=== PATIENT | male | born 1960 | race Caucasian/White ===

== ENCOUNTER → 2016-11-16 | Outpatient (CLI) | payer OTHER ==
[~2016-11-16] MED LIST: ASCO10003 PO; GABA-113 PO; LISI-461 PO; PRLSR20 PO
== END | disposition home or self-care (01) ==
LOC: C.PATHSPEC 09:59
PROVIDERS: ATTEND Family Medicine
DX: D22.9 Melanocytic nevi, unspecified (principal); L82.1 Other seborrheic keratosis

== ENCOUNTER → 2017-02-04 | Outpatient (CLI) | payer OTHER | END | disposition home or self-care (01) | LOC: C.PATHSPEC 10:41 | PROVIDERS: ATTEND Family Medicine | DX: T14.8 Other injury of unspecified body region (principal); X58.XXXA Exposure to other specified factors, initial encounter; L90.5 Scar conditions and fibrosis of skin ==

== ENCOUNTER → 2017-04-19 | Outpatient (CLI) | payer OTHER ==
[2017-04-19 13:29] LABS: BLOOD UREA NITROGEN 11 mg/dl (7-18); BUN/CREATININE RATIO 11.4 (10-20); CALCIUM 9.1 mg/dl (8.5-10.1); CARBON DIOXIDE 26 mmol/L (21-32); CHLORIDE 106 mmol/L (98-107); CREATININE 0.94 mg/dl (0.60-1.40); GLUCOSE 95 mg/dl (70-99); POTASSIUM 3.8 mmol/L (3.5-5.1); SODIUM 139 mmol/L (136-145)
== END | disposition home or self-care (01) ==
LOC: C.LABMFLN 10:51
PROVIDERS: ATTEND Physician Assistant
DX: I10 Essential (primary) hypertension (principal); R35.0 Frequency of micturition; R30.0 Dysuria

== ENCOUNTER 2017-04-23 15:02 | Emergency (ER) | payer OTHER ==
[~2017-04-23] VITALS: Ht 175.3 cm; Wt 104.6 kg
[2017-04-23 15:06] VITALS: TEMP 36.7; Ht 175.3 cm; Wt 104.6 kg
--- NOTE | 2017-04-23 15:36 | EMERGENCY ROOM VISIT NOTE ---
History First contact with patient: 15:11 Chief Complaint: LACERATION/CUT (SUT/DERMABOND) Stated Complaint: WOUND ON RIGHT HAND Nursing Triage Summary: Pt states a drill slipped and neto's head lauro screw went into right hand between thumb and 1st finger about 1 inch. History of Present Illness The patient is a 56 year old male who presents to the Emergency Room with complaints of a puncture wound of the right hand. The patient states that he accidentally drilled into his hand with a drill bit. He believes that the bit went into the hand approximately 1/4 inch. He cleaned the wound with peroxide and rubbing alcohol and applied bacitracin. He rates his discomfort a 2/10. He states his tetanus vaccination is up-to-date. He has normal range of motion of the hand and denies any numbness or weakness. He denies any other injuries. Review of Systems A complete 10 point review of systems was reviewed with the patient with pertinent positives and negatives as per history of present illness. All else were negative. Social History Smoking Status: Former Smoker Current/Historical Medications Scheduled Ascorbic Acid (Vitamin C), 1,000 MG PO DAILY Gabapentin (Neurontin), 300 MG PO BID Lisinopril (Zestril), 10 MG PO BID Omeprazole (Prilosec), 20 MG PO DAILY Physical Exam Vital Signs Date Time Temp Pulse Resp B/P (MAP) Pulse Ox O2 Delivery O2 Flow Rate FiO2 04/23/17 15:52 75 18 134/76 99 04/23/17 15:06 36.7 82 18 168/108 97 Room Air Physical Exam VITALS: Vitals are noted on the nurse's note and reviewed by myself. Vital signs stable. GENERAL: This is a 56-year-old male, in no acute distress, nondiaphoretic, well- developed well-nourished. SKIN: There is a small, subcentimeter puncture wound to the webspace of the right hand between the first and second digits. There is no active bleeding. There are no foreign bodies. MUSCULOSKELETAL: Full range of motion of the right hand and all fingers. NEURO: Patient was alert and oriented to person place and time. Normal sensation to light and sharp touch. Medical Decision & Procedures Medical Decision The patient was evaluated as above. He sustained a puncture wound to the right hand. The wound was cleansed with sterile saline and a dressing was applied. Wound care instructions were discussed with the patient and he should return for any signs of infection. There is no numbness or weakness on exam. I do not feel that imaging is necessary. The patient verbalizes understanding of my assessment and treatment plan and was discharged home in good condition. Medication Reconcilliation Current Medication List: was personally reviewed by me Blood Pressure Screening Patient's blood pressure: Elevated blood pressure Blood pressure disposition: Elevated BP felt to be situational Impression Primary Impression: Puncture wound of right hand Departure Information Dispostion Home / Self-Care Condition GOOD Referrals Nakul Blackman M.D. (PCP) Patient Instructions My [facility] Additional Instructions Proper wound care is essential for adequate wound healing and infection prevention. You can shower and clean the wound with soap and water. Do not scour over the wound, pat dry with a towel. Do not submerse the wound (i.e. bathe or dish wash) until the wound has fully healed. You can use an antibiotic ointment with a dressing over the wound for the next 3-4 days. After this time you may leave the wound dry and open to the air. For pain control, you can use the following [id number] medicines (if >12 yo): - Regular strength (325mg/tab) Tylenol (acetaminophen) 2 tabs every 4-6 hours as needed. Do not exceed 12 tablets in a 24 hour period. Avoid taking more than 4 grams (4000 mg) of Tylenol per day. This includes any other sources of acetaminophen you may take on a regular basis. - Regular strength (200 mg/tab) Advil (ibuprofen) 1-2 tabs every 4-6 hours as needed. Do not exceed a dose of 3200 mg per day. Return for any signs of infection, including increasing redness, increasing swelling, puslike drainage or fevers. Problem Qualifiers Primary Impression: Puncture wound of right hand Encounter type: initial encounter Foreign body presence: without foreign body Qualified Codes: S61.431A - Puncture wound without foreign body of right hand, initial encounter
[2017-04-23] MEDS ORDERED: GABA-113 PO (15:43)
[2017-04-23] MEDS ORDERED: PRLSR20 PO (15:43)
[2017-04-23] MEDS ORDERED: ASCO10003 PO (15:43)
[2017-04-23] MEDS ORDERED: LISI-461 PO (15:43)
[2017-04-23 15:52] VITALS: BP 134/76; PULSE 75; O2SAT 99
== END 2017-04-23 15:54 | disposition home or self-care (01) ==
LOC: C.EDB 15:03 → C.EDD 15:54
DX: S61.431A Puncture wound without foreign body of right hand, initial encounter (principal); W29.8XXA Contact with other powered hand tools and household machinery, initial encounter; Z87.891 Personal history of nicotine dependence; Z79.899 Other long term (current) drug therapy

== ENCOUNTER → 2017-05-07 | Outpatient (CLI) | payer OTHER | END | disposition home or self-care (01) | LOC: C.LABMFLN 16:12 | PROVIDERS: ATTEND Family Medicine | DX: R30.0 Dysuria (principal) ==

== ENCOUNTER → 2017-08-02 | Outpatient (CLI) | payer OTHER ==
[2017-08-02 18:22] LABS: BLOOD UREA NITROGEN 4 mg/dl (7-18); BUN/CREATININE RATIO 3.9 (10-20); CALCIUM 9.1 mg/dl (8.5-10.1); CARBON DIOXIDE 27 mmol/L (21-32); CHLORIDE 105 mmol/L (98-107); CREATININE 0.96 mg/dl (0.60-1.40); GLUCOSE 91 mg/dl (70-99); POTASSIUM 4.2 mmol/L (3.5-5.1); SODIUM 137 mmol/L (136-145)
[2017-08-02 18:32] LABS: THYROID STIMULATING HORMONE 0.714 uIu/ml (0.300-4.500)
== END | disposition home or self-care (01) ==
LOC: C.LABMFLN 11:58
PROVIDERS: ATTEND Family Medicine
DX: R63.5 Abnormal weight gain (principal); R06.00 Dyspnea, unspecified

== ENCOUNTER → 2017-12-20 | Outpatient (CLI) | payer OTHER ==
[2017-12-20 18:37] LABS: BLOOD UREA NITROGEN 8 mg/dl (7-18); CALCIUM 8.7 mg/dl (8.5-10.1); CARBON DIOXIDE 25 mmol/L (21-32); CREATININE 0.99 mg/dl (0.60-1.40); GLUCOSE 77 mg/dl (70-99); POTASSIUM 3.8 mmol/L (3.5-5.1); SODIUM 138 mmol/L (136-145)
== END | disposition home or self-care (01) ==
LOC: C.LABMFLN 14:38
PROVIDERS: ATTEND Family Medicine
DX: N41.1 Chronic prostatitis (principal)

== ENCOUNTER → 2018-03-26 | Outpatient (CLI) | payer OTHER ==
--- NOTE | 2018-03-26 13:22 | DIAGNOSTIC IMAGING REPORT ---
CT SOFT TISSUE NECK WITHOUT CT DOSE: 516.09 mGycm CLINICAL HISTORY: K11.9 parotid tail mass. TECHNIQUE: Imaging was performed without intravenous contrast. A dose lowering technique was utilized adhering to the principles of ALARA. COMPARISON STUDY: None. FINDINGS: The visualized portions of the intracranial contents appear unremarkable. No orbital masses are visualized. The lung apices are unremarkable in appearance. There is 11 mm exophytic nodule containing a central calcification arising from or contiguous with the lower pole of the left lobe of the thyroid No salivary gland masses are visualized given the limitations of a noncontrast study. There is no pathologic adenopathy on this noncontrast examination. There are multilevel degenerative changes within the spine. IMPRESSION: 1. 11 mm exophytic nodule containing a central calcification arising from or contiguous with the lower pole the left lobe of the thyroid 2. No salivary gland masses identified on this noncontrast study 3. No evidence of pathologic adenopathy on this noncontrast study Electronically signed by: Maurice Cameron M.D. 03/26/2018 1:21 PM Dictated Date/Time: 03/26/2018 1:16 PM
--- NOTE | 2018-03-26 13:24 | DIAGNOSTIC IMAGING REPORT ---
CT OF THE SINUSES WITHOUT CONTRAST FUSION PROTOCOL CLINICAL HISTORY: Recurrent acute and chronic sinusitis with persistent symptoms despite treatment. COMPARISON STUDY: No previous studies for comparison. TECHNIQUE: Axial images of the sinuses were obtained without IV contrast according to Fusion protocol. Coronal reformats were viewed. FINDINGS: Please note that the CT of the neck will be reported separately. Visualized portions of the intracranial contents are unremarkable on this unenhanced exam. The mastoid air cells are clear. Orbits are unremarkable. There is no mass or bony destruction within the nasal cavity or the sinuses. Mild leftward deviation of the nasal septum with spur formation is noted. The major drainage pathways are patent, including the ostiomeatal complexes. The maxillary sinuses and sphenoid sinuses are clear. There is minimal mucosal thickening of the ethmoid sinuses. Frontal sinuses are clear. IMPRESSION: 1. Essentially clear paranasal sinuses. Minimal ethmoid sinus mucosal thickening. Patent major drainage pathways without evidence for acute sinusitis. 2. Mild leftward deviation of the nasal septum with spur formation. Electronically signed by: Tonio Campos M.D. 03/26/2018 1:22 PM Dictated Date/Time: 03/26/2018 1:14 PM
== END | disposition home or self-care (01) ==
LOC: C.CTS 12:52
DX: J32.9 Chronic sinusitis, unspecified (principal); K11.9 Disease of salivary gland, unspecified

== ENCOUNTER → 2018-04-24 | Outpatient (CLI) | payer OTHER ==
--- NOTE | 2018-04-24 10:52 | DIAGNOSTIC IMAGING REPORT ---
THYROID ULTRASOUND CLINICAL HISTORY: Solitary thyroid nodule. COMPARISON STUDY: Neck CT March 26, 2018. PROCEDURE AND FINDINGS: The patient presented today for biopsy of a 1.1 cm left lobe thyroid nodule shown by CT. The procedure, risks and benefits were discussed with the patient including the risk of bleeding, infection and injury to adjacent structures. The patient agreed to the procedure and informed written consent was obtained. The procedure was performed by Dr. Campos following a timeout. Sonography of the thyroid again demonstrated a 1.3 cm nodule within the lower pole of the left lobe which contained a calcification in corresponded to the nodule shown on CT of March 26, 2018. Skin was prepped and draped in sterile fashion and local anesthesia was achieved with 1% lidocaine. Under direct sonographic guidance, multiple attempts were made to biopsy the left lower pole nodule. Given the small size and depth of the nodule, biopsy attempt was unsuccessful. No sample was obtained. This was discussed with the patient and it was decided to not proceed with further sampling at this time. Sonographic follow up is recommended. IMPRESSION: Unsuccessful fine needle aspiration of left lower pole thyroid nodule given small size and inferior location of the nodule. No tissue could be obtained. This was discussed with the patient and it was decided to not proceed with further sampling at this time. A 6 month follow-up thyroid ultrasound could be obtained to ensure stability. Electronically signed by: Tonio Campos M.D. 04/24/2018 10:51 AM Dictated Date/Time: 04/24/2018 10:47 AM
== END | disposition home or self-care (01) ==
LOC: C.ULTR 09:29
DX: E04.1 Nontoxic single thyroid nodule (principal)

== ENCOUNTER 2024-07-25 19:54 | Observation (INO) ==
--- NOTE | 2024-07-25 20:07 | Emergency Department Note ---
Impression & Plan Hypertension, Facial flushing, Tachycardia ED Provider Note NAME: DELONTE LUGO AGE: 64 SEX: M : 1960 ARRIVES VIA: Walk-In INFORMANT: Patient, Friend at bedside ED PROVIDER(S): Romulo Roa MD CHIEF COMPLAINT: Facial flushing, elevated heart rate, hypertension MEDICAL DECISION MAKING: Patient presents due to concern for facial flushing elevated heart rate and hypertension that has been intermittent. Patient's blood work shows a normal white count H&H and platelet count. The patient's kidney function was unremarkable. Urinalysis negative for blood or infection. Chest x-ray does not show any obvious pneumonia or pneumothorax. I did inform the patient of the findings. Patient's bilirubin is slightly elevated 2.5. He states that he does have a history of Gilbert's disease. I did speak the on-call hospitalist service Dr. Juárez and the patient was admitted to medicine service Discussion w/ other healthcare providers: Dr. Juárez inpatient medicine service Prior /Outside records reviewed: I reviewed part of a primary care visit note from March 20, [address] Art and history of hypertension anxiety started on doxazosin discontinued amlodipine. Patient did have a recent thyroid ultrasound completed on July 15 which showed single left lobe nodule with TR 4 could consider fine-needle aspirate and follow-up according to guidelines. The ultrasound was ordered by Dr. Dueñas with ear nose and throat. Differential diagnosis: Benign hypertension, renal artery stenosis, hypertensive emergency, hypertensive emergency/urgency, salt intake, pheochromocytoma, electrolyte abnormality, renal disease as well as other etiologies were entertained. Diagnostics, as interpreted by me: ECG: None Cardiac monitoring: An order was placed for continuous cardiac monitoring. The monitor shows a rate of 85 with sinus rhythm. Patient was placed on pulse oximetry Medical decision rules: None Imaging studies: I informally interpreted the patient's chest x-ray does not show obvious pneumonia or pneumothorax with formal report to follow. HPI: Patient presents due to concern for facial flushing associated hypertension and tachycardia. The patient reports that this seems to happen in waves. Is been ongoing over the last month and sometimes the initial burning sensation and flushing will last about 5 minutes but notes that his blood pressure is elevated. States that this is occurred about 10 times in the last month. Patient denies any falls or trauma. He states he is not stressed no alcohol tobacco or drugs. Only medication he currently takes is omeprazole for GERD. He did have a recent thyroid ultrasound that he was told by his ENT Dr. Spenser guevara. Patient denies any abdominal pain no chest pain or shortness of breath no nausea or vomiting. The patient states that it does feel similar to when he would have a gluten intolerance as he has a known history of celiac's but he notes that he has not been eating or drinking any of these things. He does admit that he has had a little bit of dysuria and has a history of BPH and was taking a cranberry supplement that was fermented and if so sometimes this can can have an effect or he does not tolerate it very well. He was unsure as without this could have been a contributory factor but he was having the symptoms prior to taking this 3 days ago. Patient denies any itchiness. No changes in creams detergents or otherwise. PAST MEDICAL HISTORY: See Below PAST SURGICAL HISTORY: See Below SOCIAL HISTORY: See Below HOME MEDICATIONS: See Below ALLERGIES: See Below VITALS: See Below PHYSICAL EXAMINATION: GENERAL: NAD, non-toxic. Wearing glasses only right lens present. EYE EXAM: Normal conjunctiva. PERRL, no anisocoria and EOM's grossly intact w/o pain. OROPHARYNX: Moist mucus membranes, grossly normal dentition. NECK: Trachea midline, no stridor. Supple, no nuchal rigidity, no adenopathy, non-tender. No signs of meningismus. FROM of the neck with good chin to chest and neck extension. LUNGS: Clear to auscultation. Normal chest wall mechanics. HEART: NSR, no MRG. ABDOMEN: Abdomen soft, non-tender, no masses, no rebound or guarding. BACK: No CVA TTP. SKIN: No rashes and no bruising. UPPER EXTREMITIES: Upper extremities are grossly normal. LOWER EXTREMITIES: Grossly normal, no edema. NEURO EXAM: A&O x3, cranial nerves II-XII grossly intact, normal speech, moves all 4 extremities. Past Med/Surg History Problem List (Updated 07/26/24 @ 00:02 by Romulo Roa MD) Tachycardia (Acute) Facial flushing (Acute) Hypertension (Acute) Chronic rhinitis LPRD (laryngopharyngeal reflux disease) Anxiety Hypertension Chronic GERD BPH loc w urin obs/LUTS Vitamin D deficiency Goiter Actinic keratitis Malabsorption Screening, lipid Actinic keratitis Screening, lipid Actinic keratosis Hyperkalemia Throat discomfort Dysuria Benign essential hypertension Sebaceous hyperplasia Depression with anxiety (Chronic) Erectile dysfunction (Chronic) GERD without esophagitis (Chronic) Globus sensation (Acute) Hypercholesterolemia (Chronic) NUD (nonulcer dyspepsia) (Chronic) Peripheral neuropathy (Chronic) Sensorineural hearing loss (SNHL) of both ears (Chronic) Solitary thyroid nodule (Acute) White coat syndrome without hypertension (Chronic) Actinic keratosis of multiple sites of head and neck (Acute) Cryo-therapy done on the nose w/o difficulty. SPF over 50 applied every 2 hrs avoids mid day sun 11-4 during the day. Medical History Celiac disease Pertrochanteric fracture of femur Hypertension Surgical History History of colonoscopy History of tonsillectomy and adenoidectomy History of esophagogastroduodenoscopy (EGD) History of cholecystectomy History of cataract surgery Family History Mother Anxiety Diabetes Gallbladder disease Hypertension Cancer Skin Parkinson disease Asthma Grandfather Heart disease Hypertension Stroke Father Lung disease Social History Smoking Status: Never smoker Tobacco Type: Cigarettes Hx Alcohol Use: No Hx Substance Use: No Preferred Language: Indonesian Visual Impairment: No Limitations Hearing Ability: Normal Beliefs That Will Affect Care: None marital status: Current Living Situation: Significant Other current occupational status: retired and disabled Feels Safe at Home: Yes Childhood Exposure to Second-Hand Smoke: Yes caffeine: No Dental Care, Regularly: Yes Physical Activity Frequency: Daily Seatbelt Use: always Sunscreen Use: Yes Allergies Allergies Allergy/AdvReac Type Severity Reaction Status Date / Time doxycycline Allergy Intermediate AFTER 5-7 Verified 05/13/24 08:28 DAYS DEVELOPED A SORE THROAT Sulfa (Sulfonamide Allergy Intermediate Rash Verified 05/13/24 08:28 Antibiotics) gluten Allergy Gastrointestinal Verified 07/25/24 22:15 Upset soy Allergy Hypertensio Verified 07/25/24 22:15 n ARIANA Inhibitors AdvReac Intermediate COUGH/SORE Verified 05/13/24 08:28 THROAT amitriptyline AdvReac Intermediate FREQUENT Verified 05/13/24 08:28 URINATION amoxicillin AdvReac Intermediate Hypertensio Verified 05/13/24 08:28 n bismuth subsalicylate AdvReac Intermediate RINGING IN Verified 05/13/24 08:28 [From Pepto-Bismol] EARS ciprofloxacin AdvReac Intermediate NEUROPATHY Verified 05/13/24 08:28 IN HANDS clindamycin AdvReac Intermediate Diarrhea Verified 05/13/24 08:28 metronidazole AdvReac Intermediate NEUROPATHY Verified 05/13/24 08:28 IN HANDS prednisone AdvReac Intermediate NAUSEA/FREQUENT Verified 05/13/24 08:28 URINATION amlodipine AdvReac Tachycardia Uncoded 07/25/24 22:13 Home Meds Home Medications Medication Instructions Recorded Confirmed esomeprazole magnesium 20 mg 20 mg PO DAILY 05/13/24 07/25/24 granules delayed release for susp gabapentin 300 mg capsule 300 mg PO TID PRN Pain 07/25/24 07/25/24 Results & Data (ED) Vital Signs Vital Signs - 24 hr 07/25/24 19:59 07/25/24 20:14 07/25/24 20:23 Temperature 36.8 C Temperature Source Temporal Artery Scan Pulse Rate 112 H 109 H 104 H Pulse Rate from SpO2 Sensor Pulse Rhythm Regular Respiratory Rate 19 18 Blood Pressure 166/99 H Blood Pressure Mean 121 Pulse Oximetry 97 96 Oxygen Delivery Method Room Air Room Air Sepsis Recent Fever Within 48 Hours No Sepsis New/Unexplained Change in Mental Status No Sepsis Action Taken by Nursing No Action Required 07/25/24 20:37 07/25/24 20:46 07/25/24 22:06 Temperature Temperature Source Pulse Rate 94 H 92 H 87 Pulse Rate from SpO2 Sensor 85 Pulse Rhythm Respiratory Rate 20 18 19 Blood Pressure 174/92 H 155/86 H Blood Pressure Mean 119 109 Pulse Oximetry 98 99 99 Oxygen Delivery Method Sepsis Recent Fever Within 48 Hours Sepsis New/Unexplained Change in Mental Status Sepsis Action Taken by Nursing 07/25/24 22:18 07/25/24 23:36 Temperature Temperature Source Pulse Rate 91 H 82 Pulse Rate from SpO2 Sensor 94 H Pulse Rhythm Respiratory Rate 18 16 Blood Pressure 151/123 H Blood Pressure Mean 132 Pulse Oximetry 100 99 Oxygen Delivery Method Sepsis Recent Fever Within 48 Hours Sepsis New/Unexplained Change in Mental Status Sepsis Action Taken by Residential Medications Current Medication List: was personally reviewed by me Laboratory Data Attestation: I reviewed the patient's lab results. 07/25/24 20:32 07/25/24 20:32 Lab Results 07/25/24 07/25/24 Range/Units 20:32 23:10 WBC 5.76 (4.8-10.8) K/ul RBC 4.70 (4.70-6.10) M/uL Hgb 15.3 (14.0-18.0) g/dl Hct 42.9 (42.0-52.0) % MCV 91.3 (80.0-100.0) fL MCH 32.6 (25.0-34.0) pg MCHC 35.7 (32.0-36.0) g/dL RDW Std Deviation 40.4 (36.4-46.3) fL RDW Coeff of Franky 12.1 (11.5-14.5) % Plt Count 143 (130-400) K/uL MPV 9.7 (9.4-12.4) fL Immature Gran % (Auto) 0.3 % Neut % (Auto) 72.5 % Lymph % (Auto) 18.9 % [place] % (Auto) 6.9 % Eos % (Auto) 1.2 % Baso % (Auto) 0.2 % Neut # (Auto) 4.17 (1.40-6.50) K/uL Lymph # (Auto) 1.09 L (1.20-3.40) K/uL [place] # (Auto) 0.40 (0.11-0.59) K/uL Eos # (Auto) 0.07 (0.00-0.50) K/uL Baso # (Auto) 0.01 (0.00-0.20) K/uL Immature Gran # (Auto) 0.02 (0.01-0.20) K/uL ESR 7 (0-20) mm/hr Sodium 140 (136-145) mmol/L Potassium 4.2 (3.5-5.1) mmol/L Chloride 109 H (98-107) mmol/L Carbon Dioxide 25 (21-32) mmol/L Anion Gap 6 (3-11) BUN 14 (6-23) mg/dl Creatinine 1.18 (0.6-1.4) mg/dl Est Cr Clr Drug Dosing 63.4 ml/min eGFR 69.77 BUN/Creatinine Ratio 11.9 (10-20) Glucose 107 H (70-99(Fasting)) mg/dl Calcium 8.9 (8.6-10.3) mg/dl Magnesium 2.0 (1.7-2.4) mg/dl Total Bilirubin 2.5 H (0.2-1.0) mg/dl AST 18 (13-39) U/L ALT 19 (7-52) U/L Alkaline Phosphatase 50 (34-104) U/L Troponin I High Sens 16.2 15.1 (0-20) pg/ml Total Protein 6.7 (6.0-8.3) gm/dl Albumin 4.1 (3.4-5.0) gm/dl Globulin 2.6 (2.5-4.0) gm/dl Albumin/Globulin Ratio 1.6 (0.9-2) TSH 0.965 (0.300-4.500) uIu/ml Urine Color Yellow Urine Appearance Clear (Clear) Urine pH 7.0 (4.5-7.5) Ur Specific [place] 1.008 (1.000-1.030) Urine Protein Negative (Negative) Urine Glucose (UA) Negative (Negative) Urine Ketones Negative (Negative) Urine Blood Negative (Negative) Urine Nitrite Negative (Negative) Urine Bilirubin Negative (Negative) Urine Urobilinogen Negative (Negative) Ur Leukocyte Esterase Negative (Negative) Imaging Data Radiologist's Impression: Chest X-Ray 07/25/24 20:23 Exam(s): XR CXR 1 VIEW EXAM: XR Chest, 1 View CLINICAL HISTORY: Reason for exam: Hypertension. TECHNIQUE: Frontal view of the chest. COMPARISON: 06/16/21 FINDINGS: Lungs: Unremarkable. No consolidation. Pleural space: Unremarkable. No pleural effusion or pneumothorax. Heart: Unremarkable. No cardiomegaly or pulmonary vascular congestion. Bones/joints: No acute fracture. No dislocation. IMPRESSION: No evidence of acute cardiopulmonary disease. Electronically signed by: Shanti Vázquez M.D. 07/25/24 22:45 PM Discharge Plan Visit Data Chief Complaint: Illness Stated Complaint: FACIAL FLUSHING, INCREASING HEARTRATE, HIGH BP ED Provider: Romulo Roa Discharge Problem: Hypertension, Facial flushing, Tachycardia Forms [facility] Prescriptions: No Action esomeprazole magnesium [address] for susp in packet 20 mg PO DAILY gabapentin 300 mg capsule 300 mg PO TID PRN (Reason: Pain) Referrals Referrals: Ivone Thomas MD [Primary Care Provider] - Discharge Problem: Hypertension Qualifiers: Hypertension type: unspecified Qualified Code(s): I10 - Essential (primary) hypertension
--- OUTSIDE RECORDS SUMMARY | 2024-07-25 20:17 | External Medical Summary | Summary of Care ---
Author Name Unknown Organization [facility] Address [address] [place] [address] Phone [phone] Care Team Providers Care Supervisor Reclamation Name Role Phone Ivone Thomas MD Primary Care Provider [phone] Reason for Visit * Reason Comments Other IOP check Encounter Details Date Type Department Care Team (Late st Contact Info) Description 07/14/2024 11:30 AM EST Office Visit [address] [address] Kaia Ludwig MD [address] [place] [id number] Pigmentary glaucoma of left eye, mild stage* Allergies Active Allergy Reactions Criticality Noted Date Comments Albuterol 03/29/2022 Amoxicillin Hypertension 06/30/2021 Chocolate Hypertension 11/14/2023 Hot, flushed Ciprofloxacin 12/29/2014 Heart Palp/Panic Attacks/Numbness Pt states that he got a terrible burning sensation in his chest that went up to his face. Pt also stated that he got a terrible panic attack. Clindamycin Hcl Diarrhea 07/30/2010 Doxycycline 03/06/2016 Burning in throat Metronidazole Chills/rigors 01/13/2015 Hand/Arm Numbness Gluten Meal 03/02/2016 Celiac Disease Morphine And Codeine Nausea/vomiting,Oth er (Please comment) Low 11/18/2003 "Feels funny", dizziness Pantoprazole Hypertension 01/15/2023 Prednisone Other (Please comment) Medium 04/06/2021 urinary problems Soy Allergy 04/16/2022 Statins 03/02/2016 Refuses To Take Sulfa Antibiotics 11/18/2003 Rash Timolol 12/05/2023 Fatigue, PALACIOS Wheat 01/24/2015 documented as of this encounter (statuses as of 07/18/2024) Medications gabapentin (NEURONTIN) 100 MG Capsule Take 1 Cap by mouth 3 times a day. 90 Cap 0 01/25/20 15 Active Sildenafil Citrate 20 MG Oral Tablet (Revatio) Take 1 Tablet by mouth. Take 3-5 at a time up to 3 times weekly Active Vitamin D-3 125 MCG (5000 UT) Oral Tablet Take 1 Tablet by mouth in the morning. Active Esomeprazole Magnesium 20 MG Oral Capsule Delayed Release Take 1 Capsule by mouth daily before breakfast. Active Colestipol HCl 1 GM Oral Tablet (Colestid) Take 2 Tablets by mouth in the morning and 2 Tablets before bedtime. Active Tylenol 325 MG Oral Capsule (Acetaminophen) Take by mouth. Active Ondansetron 4 MG Oral Tablet Disintegrating (Zofran) Place 1 Tablet on tongue every 8 hours as needed for Nausea. dissolve on tongue. 2 Tablet 01/01/20 24 Active oxyCODONE-Acetamin ophen 5-325 MG Oral Tablet (Percocet) Take 1 Tablet by mouth every 6 hours as needed for Pain, Moderate or Pain, Severe. 6 Tablet 01/01/20 24 Active Additional Information Patient not taking.Informant: At Discharge, Reported on 01/05/2024 Brimonidine Tartrate 0.2 % Ophthalmic Solution (Alphagan) Instill 1 Drop into the left eye in the morning and 1 Drop before bedtime. 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 documented as of this encounter (statuses as of 07/18/2024) Immunizations Name Administration Dates Next Due Seasonal Influenza Vac., MDV , IM, 0.5 mL (Fluzone) 06/24/2019,06/18/2018,06/21/2017, 016 TDAP (age 10 and older)(Boostrix) 05/12/2014 documented as of this encounter Social History Tobacco Use Types Packs/Day Years Used Date Smoking Tobacco: Former Smokeless Tobacco: Never Alcohol Use Standard Drinks/Week Comments Yes 0 (1 standard drink = 0.6 oz pur e alcohol) occasional Utilities Answer Date Recorded Do you have trouble paying y our heating, water, or electric bill? (Adult - for ages 18 years and over) Not on file 02/18/2024 Is your family able to pay t he heat, water, or electric bill? (Household - for ages 0-17 years) Not on file 02/18/2024 Does your family have access to good internet? (Household - for ages 0-17 years) Not on file 02/18/2024 Social Connections Answer Date Recorded How often do you feel lonely or isolated from those around you? (Adult - for ages 18 years and over) Not on file 02/18/2024 Sex and Gender Information Value Date Recorded Sex Assigned at Not on file Legal Sex Male 7:21 AM EST Gender Identity Not on file Sexual Orientation Not on file documented as of this encounter Functional Status * Are you deaf or do you have serious difficulty hearing? Answer Date of Assessment Author No 01/08/2015 7:37 PM Emmie Maradiaga RN * Are you blind or do you have serious difficulty seeing, even when wearing glasses? Answer Date of Assessment Author No 01/08/2015 7:37 PM Emmie Maardiaga RN * Do you have serious difficulty walking or climbing stairs? (5 years old or older) Answer Date of Assessment Author No 01/08/2015 7:37 PM Emmie Maradiaga RN * Do you have difficulty dressing or bathing? (5 years old or older) Answer Date of Assessment Author No 01/08/2015 7:37 PM Emmie Maradiaga RN * Because of a physical, mental, or emotional condition, do you have difficulty doing errands alone such as visiting a doctors office or shopping? (15 years old or older) Answer Date of Assessment Author No 01/08/2015 7:37 PM Emmie Maradiaga RN documented as of this encounter Mental Status * Because of a physical, mental, or emotional condition, do you have serious difficulty concentrating, remembering, or making decisions? (5 years old or older) Answer Entry Date Author No 01/08/2015 7:37 PM Emmie Maradiaga RN documented in this encounter Progress Notes * Kaia Ludwig MD - 07/14/2024 9:19 AM EST HPI/Summary: Referred by Dr Youssef. IOP was elevated in his left eye (40 per hx), he underwent cataract surgery and IOP remained uncontrolled. 07/14/24 Here for IOP check. He can see ok and has no pain or pressure. No new flashes floaters or double vision Ocular diagnoses Current ocular meds Glaucoma meds to avoid Pigmentary glaucoma Pseudophakia none Timolol Simbrinza PGAs - urinary frequency Brimonidine - decreased GFR Sulfa - multiple allergies Right eye Left eye Ocular surgery CE/IOL CE/IOL Inf 240 GATT (12/11/23) Ahmed (01/05/24) Max IOP 20s 60 Target IOP Gonioscopy D40f 2+ D40f 2+ CCT Ocular Fhx Past medical history: celiac disease Base Eye Exam Visual Acuity (Snellen - Linear) Right Left Dist sc 20/20 -1 Near sc J1+ Tonometry (Applanation, 12:00 PM) Right Left Pressure 18 16 Neuro/Psych Oriented x3: Yes Mood/Affect: Normal Slit Lamp and Fundus Exam Slit Lamp Exam Right Left Conjunctiva/Sclera plate well covered Cornea PEEs Anterior Chamber tube ST Iris Round and reactive Lens PCIOL tr PCO OCT RNFL - 04/02/2024 OD: good reliability. Ave RNFL 86. Full. Baseline cirrus. OS: good reliability. Ave RNFL 78. Full. Baseline cirrus. 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 ANIKA Soler scribing for and in the presence of Dr. Kaia Barton MD. 07/14/2024. This note is prepared by ANIKA Soler acting as a scribe for me. The scribe's documentation has been prepared under my direction and personally reviewed by me in its entirety. I confirm that the note above accurately reflects all work, treatment, procedures and medical decision making performed by me. Kaia Barton MD Final eye medication list None documented in this encounter Nursing Notes * Tori Landon TECH - 07/14/2024 11:32 AM EST Rodrigo Ibarra Fco presents for IOP. Last Visit: 06/03/2024 (in office), Visit date not found (telemedicine) He currently states he can see ok and has no pain or pressure. No new flashes floaters or double vision Current Ophthalmic Medications: None Vision and IOP by air tonometry if done can be found in the ophth exam. documented in this encounter Plan of Treatment Health Maintenance Due Date Last Done Comments Lipid Panel 1962 Depression Screening 1974 HIV Screening 1977 Cologuard 2007 Fecal Occult Blood Test 2007 Sigmoidoscopy 2007 Zoster Vaccines (1 of 2) 2012 Colonoscopy 04/27/2015 04/27/2005 Colorectal Cancer Screening 04/27/2015 COVID-19 Vaccine ( season) 2024 Influenza Vaccine (FLU shot) (#1) 2024 06/24/2019, 06/24/2019, 06/18/2018, Additional history exists DTap/Tdap Vaccines (2 - Td or Tdap) 05/12/2024 05/12/2014 Diabetes Screening 2027 2024, 0 05/24/2024, 05/21/2024, Additional history exists HPV (Gardasil) Vaccine Aged Out No lo nger eligible based on patient's age to complete this topic Hepatitis B Vaccine Aged Out No longe r eligible based on patient's age to complete this topic MENINGOCOCCAL (MENACTRA/MENVEO) Aged Out No longer eligible based on patient's age to complete this topic Pneumococcal Vaccine: Pediatrics (0 to 5 Years) and At-Risk Patients (6 to 64 Years) Aged Out No longer eligible based on patient's age to complete this topic documented as of this encounter Medical Devices Implanted Type Area Ceramic Saw Tender Device Identifier Shelf Expiration Date Model / Serial / Lot Shunt Tube Glaucoma Ahmed 7 - [id number] - [id number] Implanted:Qty: 1 on 01/05/2024 by Kaia Ludwig MD at OR [facility] Left: Eye [employer] [id number] 09/13/2025 Nathalie / [id number] / [id number] Graft [place] Cornea Split - [id number] - [id number] Implanted:Qty: 1 on 01/05/2024 by Kaia Ludwig MD at OR [facility] Left: Eye [employer] 07/29/2025 HCO-1 / [id number] / [id number] documented as of this encounter Visit Diagnoses Diagnosis Pigmentary glaucoma of left eye, mild stage- Primary Pigmentary open-angle glaucoma documented in this encounter Advance Directives * Full Code (Latest Code Status on File) Date Activated Date Inactivated Comments 12/11/2023 1:10 PM 12/11/2023 8:03 PM This order r eflects the patients wishes and were consensually agreed upon. Question Answer Comments Discussion of Advance Direct ruben occurred with: Not Discussed due to patient's condition Care Teams Supervisor Reclamation Relationship Specialty Start Date End Date Ivone Thomas MD [address] [place], [place] [id number] PCP - General Internal Medicine 06/03/24 documented as of this encounter
[2024-07-25 21:04] LABS: Basophils # (auto) 0.01 K/uL (0.00-0.20); Basophils % (auto) 0.2 %; Eosinophils # (auto) 0.07 K/uL (0.00-0.50); Eosinophils % (auto) 1.2 %; Hematocrit (blood only) 42.9 % (42.0-52.0); Hemoglobin 15.3 g/dl (14.0-18.0); Immature Granulocytes # (auto) 0.02 K/uL (0.01-0.20); Immature Granulocytes % (auto) 0.3 %; Lymphocytes # (auto) 1.09 K/uL (1.20-3.40); Lymphocytes % (auto) 18.9 %; Mean Corpuscular Hemoglobin 32.6 pg (25.0-34.0); Mean Corpuscular Hgb Conc 35.7 g/dL (32.0-36.0); Mean Corpuscular Volume 91.3 fL (80.0-100.0); Mean Platelet Volume 9.7 fL (9.4-12.4); Monocytes % (auto) 6.9 %; Neutrophils # (auto) 4.17 K/uL (1.40-6.50); Neutrophils % (auto) 72.5 %; Platelet Count 143 K/uL (130-400); RDW Coefficient of Variation 12.1 % (11.5-14.5); RDW Standard Deviation 40.4 fL (36.4-46.3); White Blood Count 5.76 K/ul (4.8-10.8)
[2024-07-25 21:12] LABS: Appearance Urine Clear (Clear); Bilirubin Urine Negative (Negative); Blood Urine Negative (Negative); Color Urine Yellow; Glucose Urine UA Negative (Negative); Ketones Urine Negative (Negative); Leukocyte Esterase Urine Negative (Negative); Nitrite Urine Negative (Negative); Protein Urine Negative (Negative); Specific Gravity Urine 1.008 (1.000-1.030); Urobilinogen Urine Negative (Negative)
[2024-07-25 21:15] LABS: Albumin Globulin Ratio 1.6 (0.9-2); Albumin Level 4.1 gm/dl (3.4-5.0); BUN Creatinine Ratio 11.9 (10-20); Bilirubin,Total 2.5 mg/dl (0.2-1.0); Calcium 8.9 mg/dl (8.6-10.3); Creatinine Clr Calc Pharmacy 63.4 ml/min; Globulin 2.6 gm/dl (2.5-4.0); Potassium 4.2 mmol/L (3.5-5.1); Total Protein 6.7 gm/dl (6.0-8.3)
[2024-07-25 21:22] LABS: Troponin I High Sensitivity 16.2 pg/ml (0-20)
[2024-07-25 21:31] LABS: Thyroid Stimulating Hormone 0.965 uIu/ml (0.300-4.500)
--- NOTE | 2024-07-25 22:46 | XRay Report ---
Exam(s): XR CXR 1 VIEW EXAM: XR Chest, 1 View CLINICAL HISTORY: Reason for exam: Hypertension. TECHNIQUE: Frontal view of the chest. COMPARISON: 06/16/21 FINDINGS: Lungs: Unremarkable. No consolidation. Pleural space: Unremarkable. No pleural effusion or pneumothorax. Heart: Unremarkable. No cardiomegaly or pulmonary vascular congestion. Bones/joints: No acute fracture. No dislocation. IMPRESSION: No evidence of acute cardiopulmonary disease. Electronically signed by: Shanti Vázquez M.D. 07/25/24 22:45 PM
--- NOTE | 2024-07-25 23:01 | History & Physical Report ---
Date of Service July 25, 2024 Assessment & Plan (1) Tachycardia: (2) Facial flushing: (3) Hypertension: (4) Chronic GERD: Plan Facial flushing/tachycardia and hypertension- The patient will be admitted to telemetry for serial cardiac enzymes, serial EKG's, cardiac rhythm monitoring and a 2-D echocardiogram with Dopplers. Initial troponin 0.2, with follow-up 15.1 Patient has had intermittent episodes over the past few months He reports having had some studies done at [facility], that we do not have access to He reports having had a tick bite and therefore studies were ordered: Lyme test is negative, anaplasmosis/babesiosis smear is negative with antibodies pending, and ehrlichiosis pending Renal artery duplex were negative, and renal anatomy appears negative Additional workup including: AM renin, aldosterone, cortisol and ACTH, spot metanephrines, catecholamines, and urine 5-HIAA Will consult nephrology for any additional suggestions GERD- Continue esomeprazole/pantoprazole Depression with anxiety- Patient asked that stay with him this evening On no regular treatment at this time History of Present Illness Chief Complaint: The patient presents to the emergency department with complaint of episodes of facial flushing, elevated heart rate and blood pressure for him intermittently over the past few months. Primary Care Provider: Ivone Thomas MD The patient is a 64-year-old male with a past medical history BPH with LUTS, vitamin D deficiency, goiter, depression with anxiety, GERD without esophagitis, peripheral neuropathy, nonulcer dyspepsia, and solitary thyroid nodule. He presents to the emergency department due to concerns regarding episodes of facial flushing, and when he checks his blood pressure and heart rate at time he is found that they both increased. He denies any alcohol or drug use, and he does not smoke. He engages in regular exercise. He denies any recent travels or sick exposures. He reports that his salt intake is normal, and denies any excessive caffeine use or decongestant use. Allergies Allergy/AdvReac Type Severity Reaction Status Date / Time doxycycline Allergy Intermediate AFTER 5-7 Verified 05/13/24 08:28 DAYS DEVELOPED A SORE THROAT Sulfa (Sulfonamide Allergy Intermediate Rash Verified 05/13/24 08:28 Antibiotics) gluten Allergy Gastrointestinal Verified 07/25/24 22:15 Upset soy Allergy Hypertensio Verified 07/25/24 22:15 n ARIANA Inhibitors AdvReac Intermediate COUGH/SORE Verified 05/13/24 08:28 THROAT amitriptyline AdvReac Intermediate FREQUENT Verified 05/13/24 08:28 URINATION amoxicillin AdvReac Intermediate Hypertensio Verified 05/13/24 08:28 n bismuth subsalicylate AdvReac Intermediate RINGING IN Verified 05/13/24 08:28 [From Pepto-Bismol] EARS ciprofloxacin AdvReac Intermediate NEUROPATHY Verified 05/13/24 08:28 IN HANDS clindamycin AdvReac Intermediate Diarrhea Verified 05/13/24 08:28 metronidazole AdvReac Intermediate NEUROPATHY Verified 05/13/24 08:28 IN HANDS prednisone AdvReac Intermediate NAUSEA/FREQUENT Verified 05/13/24 08:28 URINATION amlodipine AdvReac Unknown Tachycardia Verified 07/26/24 01:09 Home Medications Medication Instructions Recorded Confirmed Type esomeprazole magnesium 20 mg 20 mg PO DAILY 05/13/24 07/25/24 History granules delayed release for susp gabapentin 300 mg capsule 300 mg PO TID PRN Pain 07/25/24 07/25/24 History Past Med/Surg History Problem List (Updated 07/26/24 @ 00:02 by Romulo Roa MD) Tachycardia (Acute) Facial flushing (Acute) Hypertension (Acute) Chronic rhinitis LPRD (laryngopharyngeal reflux disease) Anxiety Hypertension Chronic GERD BPH loc w urin obs/LUTS Vitamin D deficiency Goiter Actinic keratitis Malabsorption Screening, lipid Actinic keratitis Screening, lipid Actinic keratosis Hyperkalemia Throat discomfort Dysuria Benign essential hypertension Sebaceous hyperplasia Depression with anxiety (Chronic) Erectile dysfunction (Chronic) GERD without esophagitis (Chronic) Globus sensation (Acute) Hypercholesterolemia (Chronic) NUD (nonulcer dyspepsia) (Chronic) Peripheral neuropathy (Chronic) Sensorineural hearing loss (SNHL) of both ears (Chronic) Solitary thyroid nodule (Acute) White coat syndrome without hypertension (Chronic) Actinic keratosis of multiple sites of head and neck (Acute) Cryo-therapy done on the nose w/o difficulty. SPF over 50 applied every 2 hrs avoids mid day sun 11-4 during the day. Medical History Celiac disease Pertrochanteric fracture of femur Hypertension Surgical History History of colonoscopy History of tonsillectomy and adenoidectomy History of esophagogastroduodenoscopy (EGD) History of cholecystectomy History of cataract surgery Family History Mother Anxiety Diabetes Gallbladder disease Hypertension Cancer Skin Parkinson disease Asthma Grandfather Heart disease Hypertension Stroke Father Lung disease Social History Smoking Status: Former smoker Tobacco Type: Cigarettes Hx Alcohol Use: No Hx Substance Use: No Preferred Language: Greek Communication Ability: Effective Visual Impairment: No Limitations Hearing Ability: Normal 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 Beliefs That Will Affect Care: None marital status: Current Living Situation: Spouse current occupational status: retired and disabled Other Information That Helps Us Care for You: No Feels Safe at Home: Yes Safety Concerns: Feels Safe At This Time Childhood Exposure to Second-Hand Smoke: Yes caffeine: No Dental Care, Regularly: Yes Physical Activity Frequency: Daily Seatbelt Use: always Sunscreen Use: Yes Assistive Devices: None Review of Systems Review of Systems: The patient denies chest pain, palpitations, shortness of breath, dyspnea on exertion, cough, lower extremity swelling, sore throat, fevers, chills, sweats, weight change, fatigue, nausea, vomiting, diarrhea , constipation, abdominal pain, pelvic pain, blood in urine or stool, dysuria, urinary frequency or urgency, memory loss, loss of consciousness, rash, abnormal bruising or bleeding, imbalance, focal or generalized weakness, numbness or tingling in arms or legs, generalized arthralgias or myalgias, back or neck pain, or night sweats. The review of systems is otherwise negative other than for that already noted above, and at least 10 systems have been reviewed. Physical Exam Physical Exam: The patient is awake, alert and oriented 3, well developed and well nourished, normocephalic and atraumatic, lying in bed and in no acute distress. HEENT--PERRL, EOMI, mucous membranes and oropharynx normal. Neck--supple. No JVD. No bruits. Thyroid normal, trachea midline, no adenopathy. Heart--normal S1 and S2. No murmurs, rubs or gallops. Lungs--clear bilaterally, no respiratory distress, no accessory muscle use. Abdomen--normal bowel sounds and soft. Nontender. Nondistended, no hernias or masses, no organomegaly. Extremities--no cyanosis or clubbing. No edema. There are good distal pulses b/l. Dermatologic--normal skin turgor, normal color, no abnormal lymph nodes, no rash. Neurologic--cranial nerves II through XII grossly intact. Rheumatologic--normal range of motion. Psychiatric--normal affect. Results & Data Results & Data Vital Signs (Past 12 Hours) Vital Signs Temp Pulse Resp BP Pulse Ox O2 Del Method 07/25/24 22:18 91 H 18 100 07/25/24 22:06 87 19 99 07/25/24 20:46 92 H 18 155/86 H 99 07/25/24 20:37 94 H 20 174/92 H 98 07/25/24 20:23 104 H 18 96 Room Air 07/25/24 20:14 109 H 07/25/24 19:59 36.8 C 112 H 19 166/99 H 97 Room Air Laboratory Results Laboratory Results WBC 5.76 K/ul (4.8-10.8) 07/25/24 20:32 RBC 4.70 M/uL (4.70-6.10) 07/25/24 20:32 Hgb 15.3 g/dl (14.0-18.0) 07/25/24 20:32 Hct 42.9 % (42.0-52.0) 07/25/24 20:32 MCV 91.3 fL (80.0-100.0) 07/25/24 20:32 MCH 32.6 pg (25.0-34.0) 07/25/24 20:32 MCHC 35.7 g/dL (32.0-36.0) 07/25/24 20:32 RDW Std Deviation 40.4 fL (36.4-46.3) 07/25/24 20:32 RDW Coeff of Franky 12.1 % (11.5-14.5) 07/25/24 20:32 Plt Count 143 K/uL (130-400) 07/25/24 20:32 MPV 9.7 fL (9.4-12.4) 07/25/24 20:32 Immature Gran % (Auto) 0.3 % 07/25/24 20:32 Neut % (Auto) 72.5 % 07/25/24 20:32 Lymph % (Auto) 18.9 % 07/25/24 20:32 [place] % (Auto) 6.9 % 07/25/24 20:32 Eos % (Auto) 1.2 % 07/25/24 20:32 Baso % (Auto) 0.2 % 07/25/24 20:32 Neut # (Auto) 4.17 K/uL (1.40-6.50) 07/25/24 20:32 Lymph # (Auto) 1.09 K/uL (1.20-3.40) L 07/25/24 20:32 [place] # (Auto) 0.40 K/uL (0.11-0.59) 07/25/24 20:32 Eos # (Auto) 0.07 K/uL (0.00-0.50) 07/25/24 20:32 Baso # (Auto) 0.01 K/uL (0.00-0.20) 07/25/24 20:32 Immature Gran # (Auto) 0.02 K/uL (0.01-0.20) 07/25/24 20:32 ESR 7 mm/hr (0-20) 07/25/24 20:32 Sodium 140 mmol/L (136-145) 07/25/24 20:32 Potassium 4.2 mmol/L (3.5-5.1) 07/25/24 20:32 Chloride 109 mmol/L (98-107) H 07/25/24 20:32 Carbon Dioxide 25 mmol/L (21-32) 07/25/24 20:32 Anion Gap 6 (3-11) 07/25/24 20:32 BUN 14 mg/dl (6-23) 07/25/24 20:32 Creatinine 1.18 mg/dl (0.6-1.4) 07/25/24 20:32 Est Cr Clr Drug Dosing 63.4 ml/min 07/25/24 20:32 eGFR 69.77 07/25/24 20:32 BUN/Creatinine Ratio 11.9 (10-20) 07/25/24 20:32 Glucose 107 mg/dl (70-99(Fasting)) H 07/25/24 20:32 Calcium 8.9 mg/dl (8.6-10.3) 07/25/24 20:32 Magnesium 2.0 mg/dl (1.7-2.4) 07/25/24 20:32 Total Bilirubin 2.5 mg/dl (0.2-1.0) H 07/25/24 20:32 AST 18 U/L (13-39) 07/25/24 20:32 ALT 19 U/L (7-52) 07/25/24 20:32 Alkaline Phosphatase 50 U/L (34-104) 07/25/24 20:32 Troponin I High Sens 15.1 pg/ml (0-20) 07/25/24 23:10 Total Protein 6.7 gm/dl (6.0-8.3) 07/25/24 20:32 Albumin 4.1 gm/dl (3.4-5.0) 07/25/24 20:32 Globulin 2.6 gm/dl (2.5-4.0) 07/25/24 20:32 Albumin/Globulin Ratio 1.6 (0.9-2) 07/25/24 20:32 TSH 0.965 uIu/ml (0.300-4.500) 07/25/24 20:32 Urine Color Yellow 07/25/24 20:32 Urine Appearance Clear (Clear) 07/25/24 20:32 Urine pH 7.0 (4.5-7.5) 07/25/24 20:32 Ur Specific [place] 1.008 (1.000-1.030) 07/25/24 20:32 Urine Protein Negative (Negative) 07/25/24 20:32 Urine Glucose (UA) Negative (Negative) 07/25/24 20:32 Urine Ketones Negative (Negative) 07/25/24 20:32 Urine Blood Negative (Negative) 07/25/24 20:32 Urine Nitrite Negative (Negative) 07/25/24 20:32 Urine Bilirubin Negative (Negative) 07/25/24 20:32 Urine Urobilinogen Negative (Negative) 07/25/24 20:32 Ur Leukocyte Esterase Negative (Negative) 07/25/24 20:32 Anaplasma Smear See Comment 07/25/24 23:10 Babesia Smear See Comment 07/25/24 23:10 Lyme Disease Screen Negative (Negative) 07/25/24 20:32 Impressions Chest X-Ray 07/25/24 20:23 Exam(s): XR CXR 1 VIEW EXAM: XR Chest, 1 View CLINICAL HISTORY: Reason for exam: Hypertension. TECHNIQUE: Frontal view of the chest. COMPARISON: 06/16/21 FINDINGS: Lungs: Unremarkable. No consolidation. Pleural space: Unremarkable. No pleural effusion or pneumothorax. Heart: Unremarkable. No cardiomegaly or pulmonary vascular congestion. Bones/joints: No acute fracture. No dislocation. IMPRESSION: No evidence of acute cardiopulmonary disease. Electronically signed by: Shanti Vázquez M.D. 07/25/24 22:45 PM Renal Artery Duplex 07/25/24 22:40 EXAM: US duplex renal art/vein BI CLINICAL HISTORY: volatile BP, facial flush, tachycardia AO: 93cm/s Right Kidney: 11.3cm Highest velocity seen: 130cm/s in proximal renal artery RI: .8 Left Kidney: 11.5cm Highest velocity seen: 85cm/s in distal left renal artery. RI: .8 TECHNIQUE: Bilateral renal arterial duplex was performed with a marinelli-scale and duplex. One or more of the following were performed- spectral analysis, resistive index, waveform analysis, and pulsed Doppler. COMPARISON: None. FINDINGS: Kidneys: The right kidney measures 11.33 cm, normal in size. The left kidney measures 11.49 cm, normal in size. There is no evidence of stones, cysts, or hydronephrosis bilaterally. The bilateral cortex and pelvis are normal in size. No other significant pathology was seen. Perinephric fat, fluid, and adrenal glands appear unremarkable. Aorta: Mid aorta diameter is within normal limits. Mid aorta peak systolic velocity (PSV) is 92.5 cm/sec, within normal limits. No atherosclerotic changes throughout the visualized abdominal aorta. Renal Arteries: Parameter Right Renal Artery (RRA) Left Renal Artery (LRA) Proximal PSV/EDV (cm/sec) 129.6 cm/s, 31cm/s RI=0.76 67.6 cm/s,19.3 cm/s RI=0.71 Mid PSV/EDV (cm/sec) 115cm/s,42.7cm/s RI =0.63 63.4cm/s,20.7cm/s RI=0.67 Distal PSV/EDV (cm/sec) 87.3cm/s,26.3cm/s RI=0.70 85cm/s,19.3cm/s Ri=0.77 Resistive Index (RI) RI: Upper pole: 0.70 Mid pole: 0.61 Lower pole: 0.71 RI: Upper pole: 0.66 Mid pole: 0.66 Lower pole: 0.66 Renal Artery/Aorta Ratio (RAR) 1.4 0.9 Reference data: 60% stenosis, RAR 3.1: 1, renal artery PSV 180 cm/s The renal artery/aorta ratio is within normal limits bilaterally. There is no detectable renal artery stenosis bilaterally. Normal flow in the renal veins with right PSV =57.2cm/s.Left PSV = 13.8cm/s IMPRESSION: 1. There is no evidence of gross renal artery occlusive disease in both renal arteries, with asymmetry in renal flow showing little increase in the right side velocities. 2. Patent both renal veins, with normal flow seen. 3. Normal kidney size bilaterally noted. Electronically signed by Salomón Malone 07-26-2024 01:44 AM Code Status & VTE Plan Code Status Full code VTE Prophylaxis Plan VTE Prophylaxis will be ordered: Yes PG Care Time/CCT Total # of Minutes Spent Total Time Spent with Patient: Total time spent is greater than 50% in coordination of care (as documented) at patient's floor/unit and/or counseling patient: Coding Level of Care Code 82109 INT INP/OBS CARE 3/75MIN Diagnoses Tachycardia R00.0 Facial flushing R23.2 Hypertension I10 Hypertension type: unspecified Chronic GERD K21.9 (3) Hypertension Hypertension type: unspecified Qualified Code(s): I10 - Essential (primary) hypertension
[2024-07-26] MEDS ORDERED: ACETAMINOPHEN 325 MG TAB PO PRN (01:05)
--- NOTE | 2024-07-26 01:44 | Ultrasound Report ---
EXAM: US duplex renal art/vein BI CLINICAL HISTORY: volatile BP, facial flush, tachycardia AO: 93cm/s Right Kidney: 11.3cm Highest velocity seen: 130cm/s in proximal renal artery RI: .8 Left Kidney: 11.5cm Highest velocity seen: 85cm/s in distal left renal artery. RI: .8 TECHNIQUE: Bilateral renal arterial duplex was performed with a marinelli-scale and duplex. One or more of the following were performed- spectral analysis, resistive index, waveform analysis, and pulsed Doppler. COMPARISON: None. FINDINGS: Kidneys: The right kidney measures 11.33 cm, normal in size. The left kidney measures 11.49 cm, normal in size. There is no evidence of stones, cysts, or hydronephrosis bilaterally. The bilateral cortex and pelvis are normal in size. No other significant pathology was seen. Perinephric fat, fluid, and adrenal glands appear unremarkable. Aorta: Mid aorta diameter is within normal limits. Mid aorta peak systolic velocity (PSV) is 92.5 cm/sec, within normal limits. No atherosclerotic changes throughout the visualized abdominal aorta. Renal Arteries: Parameter Right Renal Artery (RRA) Left Renal Artery (LRA) Proximal PSV/EDV (cm/sec) 129.6 cm/s, 31cm/s RI=0.76 67.6 cm/s,19.3 cm/s RI=0.71 Mid PSV/EDV (cm/sec) 115cm/s,42.7cm/s RI =0.63 63.4cm/s,20.7cm/s RI=0.67 Distal PSV/EDV (cm/sec) 87.3cm/s,26.3cm/s RI=0.70 85cm/s,19.3cm/s Ri=0.77 Resistive Index (RI) RI: Upper pole: 0.70 Mid pole: 0.61 Lower pole: 0.71 RI: Upper pole: 0.66 Mid pole: 0.66 Lower pole: 0.66 Renal Artery/Aorta Ratio (RAR) 1.4 0.9 Reference data: 60% stenosis, RAR 3.1: 1, renal artery PSV 180 cm/s The renal artery/aorta ratio is within normal limits bilaterally. There is no detectable renal artery stenosis bilaterally. Normal flow in the renal veins with right PSV =57.2cm/s.Left PSV = 13.8cm/s IMPRESSION: 1. There is no evidence of gross renal artery occlusive disease in both renal arteries, with asymmetry in renal flow showing little increase in the right side velocities. 2. Patent both renal veins, with normal flow seen. 3. Normal kidney size bilaterally noted. Electronically signed by Salomón Malone 07-26-2024 01:44 AM
[2024-07-26 03:28] VITALS: RESP 16
--- NOTE | 2024-07-26 07:18 | Electrocardiogram Report ---
Test Reason : Blood Pressure : */* mmHG Vent. Rate : 95 BPM Atrial Rate : 95 BPM P-R Int : 198 ms QRS Dur : 90 ms QT Int : 340 ms P-R-T Axes : 38 -7 32 degrees QTcB Int : 427 ms Normal sinus rhythm Normal ECG When compared with ECG of 17-Mar-2022 01:22, No significant change was found Confirmed by Rei Cho ([id number]) on 07/26/2024 7:18:19 AM Referred By: NO PCP Confirmed By: Rei Cho
[2024-07-26 07:37] LABS: Basophils # (auto) 0.02 K/uL (0.00-0.20); Basophils % (auto) 0.4 %; Eosinophils % (auto) 2.1 %; Hematocrit (blood only) 44.2 % (42.0-52.0); Hemoglobin 15.5 g/dl (14.0-18.0); Immature Granulocytes # (auto) 0.02 K/uL (0.01-0.20); Immature Granulocytes % (auto) 0.4 %; Lymphocytes # (auto) 1.18 K/uL (1.20-3.40); Lymphocytes % (auto) 24.4 %; Mean Corpuscular Hemoglobin 32.4 pg (25.0-34.0); Mean Corpuscular Hgb Conc 35.1 g/dL (32.0-36.0); Mean Corpuscular Volume 92.3 fL (80.0-100.0); Mean Platelet Volume 9.6 fL (9.4-12.4); Monocytes # (auto) 0.34 K/uL (0.11-0.59); Neutrophils # (auto) 3.18 K/uL (1.40-6.50); Neutrophils % (auto) 65.7 %; Platelet Count 138 K/uL (130-400); RDW Coefficient of Variation 12.3 % (11.5-14.5); RDW Standard Deviation 41.5 fL (36.4-46.3); Red Blood Count 4.79 M/uL (4.70-6.10); White Blood Count 4.84 K/ul (4.8-10.8)
[2024-07-26 07:50] LABS: Albumin Globulin Ratio 1.6 (0.9-2); Albumin Level 4.2 gm/dl (3.4-5.0); BUN Creatinine Ratio 12.2 (10-20); Bilirubin,Total 3.1 mg/dl (0.2-1.0); Calcium 9.1 mg/dl (8.6-10.3); Creatinine Clr Calc Pharmacy 96.9 ml/min; Globulin 2.7 gm/dl (2.5-4.0); Magnesium 2.1 mg/dl (1.7-2.4); Potassium 3.9 mmol/L (3.5-5.1); Total Protein 6.9 gm/dl (6.0-8.3)
[2024-07-26 08:01] LABS: Partial Thromboplastin Time 28 Seconds (21-31)
[2024-07-26] MEDS: PANTOprazole 40 MG TAB PO SCH (10:25)
--- NOTE | 2024-07-26 10:45 | XCELERA ---
[id number] \\[id number]\[id number]
[2024-07-26 11:10] VITALS: PULSE 81; TEMP 97.9; O2SAT 98
--- NOTE | 2024-07-26 12:57 | Nephrology Consultation ---
Date of Consultation July 26, 2024 Assessment & Plan (1) Hypertension: (2) Facial flushing: (3) Tachycardia: (4) Labile hypertension: Plan 64-year-old gentleman, otherwise healthy, admitted to the hospital with episodes of facial flushing, hypertensive urgency and tachycardia. Has history of labile hypertension for years with sensitivity to most of the antihypertensive medications which cause rapid drop in blood pressure to hypertensive level which makes him feel poorly. Workup since admission including renal function, urinalysis, renal artery Doppler, EKG and 2D echo unremarkable without any end organ damage from hypertension. Blood pressure improved significantly this morning, heart rate normalized to 70s to 80s. Did not have any further episode of flushing. -- Agree with waiting for aldosterone, renin and workup for Pheo -- Considering significant sensitivity to any antihypertensive medications and he did not feel well on beta-geoff, recommended to consider very low-dose of amlodipine 2.5, hydrochlorothiazide 12.5 or low-dose hydralazine to consider. Other option would be low-dose spironolactone as he feels whenever he consume high potassium his blood pressure goes down. -- Since blood pressure improved and heart rate control and did not have any other symptoms at this time he is considering just going home and taking rest and monitoring the blood pressure while waiting for the results of above workup, which seems reasonable. Since he was already after he goes home his blood pressure might go up again and he may end up coming to the ER recommended to start on very low-dose of labetalol to be taken at home to have avoid hyperten sive urgency and need for ER visit. He would still like to wait and continue to monitor without antihypertensive medication at this point. -- No indication for any other nephrology follow-up or workup at this time. Recommended to have close monitoring and follow-up with his PCP as an outpatient. Will sign off. Thank you for allowing me to participate in your patient's care. It was a pleasure to see Mr. Eagle. History of Present Illness Reason for Consultation: Hypertensive urgency with history of intolerance to multiple antihypertensive medications. Attending Physician: Raisa Robles MD History of Present Illness Mr. Rodrigo Eagle is a 64-year-old male with history of labile hypertension and intolerance to most of the antihypertensive medications, presented to the hospital with facial flushing, elevated blood pressure and heart rate. Nephrology consult requested for management of hypertensive urgency. Urine records reviewed in detail during patient's visit. was at bedside during visit. Ollie presented to the ER yesterday after he started noticing episodes of facial flushing and found to have elevated blood pressure and heart rate. He reports having issues with his blood pressure for quite long time. His blood pressure varies widely, blood pressure tend to go really high but with very low-dose of any antihypertensive medication his blood pressure dropped significantly and reports lowest systolic blood pressure at some point around 80s felt poorly. On admission his highest systolic blood pressure was 180 and highest diastolic was 123 but without any medication his blood pressure slowly started to improve and this morning blood pressure was 139/78. He reports this lower blood pressure was after he had to potatoes for lunch and he feels that potassium lowered the blood pressure. He had adverse effect mainly intolerance to different antihypertensive including beta-geoff which caused some chest abnormal feeling, other medications to drop his blood pressure significantly. Reports eating healthy and exercising regularly and planning to drop another 10 to 15 pounds which she feels slowly improve his blood pressure. No h/o alcohol or drug use, and he does not smoke. No history of recent heavy NSAID use. Kidney function is normal, baseline creatinine 0.8 mg/dl. Urinalysis showed no proteinuria hematuria pyuria, urine Ph 7.0. TSH normal. Renal artery Doppler and 2D echo unremarkable without any end organ damage from hypertension.EKG showed normal sinus rhythm no LVH. Overall he reports feeling well, no further episode of flushing, blood pressure improved however he is quite concerned with the significant fluctuation of his blood pressure especially that large drop in blood pressure with even low-dose of antihypertensive medications. Allergies Allergy/AdvReac Type Severity Reaction Status Date / Time doxycycline Allergy Intermediate AFTER 5-7 Verified 05/13/24 08:28 DAYS DEVELOPED A SORE THROAT Sulfa (Sulfonamide Allergy Intermediate Rash Verified 05/13/24 08:28 Antibiotics) gluten Allergy Gastrointestinal Verified 07/25/24 22:15 Upset soy Allergy Hypertensio Verified 07/25/24 22:15 n ARIANA Inhibitors AdvReac Intermediate COUGH/SORE Verified 05/13/24 08:28 THROAT amitriptyline AdvReac Intermediate FREQUENT Verified 05/13/24 08:28 URINATION amoxicillin AdvReac Intermediate Hypertensio Verified 05/13/24 08:28 n bismuth subsalicylate AdvReac Intermediate RINGING IN Verified 05/13/24 08:28 [From Pepto-Bismol] EARS ciprofloxacin AdvReac Intermediate NEUROPATHY Verified 05/13/24 08:28 IN HANDS clindamycin AdvReac Intermediate Diarrhea Verified 05/13/24 08:28 metronidazole AdvReac Intermediate NEUROPATHY Verified 05/13/24 08:28 IN HANDS prednisone AdvReac Intermediate NAUSEA/FREQUENT Verified 05/13/24 08:28 URINATION amlodipine AdvReac Unknown Tachycardia Verified 07/26/24 01:09 Home Medications Medication Instructions Recorded Confirmed Type esomeprazole magnesium 20 mg 20 mg PO DAILY 05/13/24 07/25/24 History granules delayed release for susp gabapentin 300 mg capsule 300 mg PO TID PRN Pain 07/25/24 07/25/24 History Patient History Medical History Celiac disease Pertrochanteric fracture of femur Hypertension Surgical History History of colonoscopy History of tonsillectomy and adenoidectomy History of esophagogastroduodenoscopy (EGD) History of cholecystectomy History of cataract surgery Family History Mother Anxiety Diabetes Gallbladder disease Hypertension Cancer Skin Parkinson disease Asthma Grandfather Heart disease Hypertension Stroke Father Lung disease Social History Smoking Status: Former smoker Tobacco Type: Cigarettes Hx Alcohol Use: No Hx Substance Use: No Preferred Language: Cymraes Communication Ability: Effective Visual Impairment: No Limitations Hearing Ability: Normal Cna Gna Required: No Beliefs That Will Affect Care: None marital status: Current Living Situation: Spouse current occupational status: retired and disabled Other Information That Helps Us Care for You: No Feels Safe at Home: Yes Safety Concerns: Feels Safe At This Time Childhood Exposure to Second-Hand Smoke: Yes caffeine: No Dental Care, Regularly: Yes Physical Activity Frequency: Daily Seatbelt Use: always Sunscreen Use: Yes Assistive Devices: None Review of Systems Review of Systems: Detail review of system was otherwise unremarkable. Physical Exam Constitutional: WD/WN, vitals as above no acute distress Eyes: + anicteric sclerae ENMT: Ears: no hearing impairment Neck: normal visual inspection Respiratory: no respiratory distress Auscultation: lungs clear to auscultation bilaterally Cardiovascular: Rate/Rhythm: regular rate and regular rhythm Heart Sounds: normal S1 and normal S2 Extremities: no edema Gastrointestinal (Abdomen): Inspection/Auscultation: abdomen normal to inspection Musculoskeletal: Extremities: extremities normal to inspection Neurologic: Motor/Sensory: no tremor Awake, alert, oriented x 3, normal speech and cognition. Psychiatric: Orientation: alert and oriented x 3 Affect: euthymic affect Results & Data Vital Signs (Past 12 Hours) Vital Signs Temp Pulse Pulse Resp BP BP Pulse Ox 07/26/24 11:09 36.6 C 81 16 139/78 98 07/26/24 07:35 36.5 C 74 16 169/97 H 99 07/26/24 07:27 84 07/26/24 03:27 36.5 C 72 16 158/91 H 98 07/26/24 01:30 36.5 C 76 18 151/82 H 98 07/26/24 01:10 36.5 C 84 18 180/100 H 98 07/26/24 01:05 84 97 07/26/24 01:00 80 07/26/24 01:00 O2 Del Method 07/26/24 11:09 Room Air 07/26/24 07:35 Room Air 07/26/24 07:27 07/26/24 03:27 Room Air 07/26/24 01:30 Room Air 07/26/24 01:10 Room Air 07/26/24 01:05 Room Air 07/26/24 01:00 07/26/24 01:00 Room Air PG Care Time/CCT Total # of Minutes Spent Total Time Spent with Patient: Total time spent is greater than 50% in coordination of care (as documented) at patient's floor/unit and/or counseling patient: Coding Level of Care Code 98000 INT INP/OBS CARE 3/75MIN Diagnoses Hypertension I10 Hypertension type: unspecified Facial flushing R23.2 Tachycardia R00.0 Labile hypertension R09.89 (1) Hypertension Hypertension type: unspecified Qualified Code(s): I10 - Essential (primary) hypertension
[2024-07-26 14:03] VITALS: BP 151/82
--- NOTE | 2024-07-26 16:22 | Discharge Summary ---
Discharge Summary Date of Service July 26, 2024 Principal Dx & Hospital Course #1 = Principal Diagnosis (1) Tachycardia: (2) Facial flushing: (3) Hypertension: (4) Chronic GERD: Plan Facial flushing/tachycardia and hypertension- The patient was admitted to telemetry for serial cardiac enzymes, serial EKG's, cardiac rhythm monitoring and a 2-D echocardiogram with Dopplers - nothing abnormal detected. Initial troponin 0.2, with follow-up 15.1 Patient has had intermittent episodes over the past few months He reports having had some studies done at [facility], that we do not have access to Renal artery duplex were negative, and renal anatomy appears negative Additional workup including: AM renin, aldosterone, cortisol and ACTH, spot metanephrines, catecholamines, and urine 5-HIAA Nephrology eval completed - 64-year-old gentleman, otherwise healthy, admitted to the hospital with episodes of facial flushing, hypertensive urgency and tachycardia. Has history of labile hypertension for years with sensitivity to most of the antihypertensive medications which cause rapid drop in blood pressure to hypertensive level which makes him feel poorly. Workup since admission including renal function, urinalysis, renal artery Doppler, EKG and 2D echo unremarkable without any end organ damage from hypertension. Blood pressure improved significantly this morning, heart rate normalized to 70s to 80s. Did not have any further episode of flushing. -- Agree with waiting for aldosterone, renin and workup for Pheo -- Considering significant sensitivity to any antihypertensive medications and he did not feel well on beta-geoff, recommended to consider very low-dose of amlodipine 2.5, hydrochlorothiazide 12.5 or low-dose hydralazine to consider. Other option would be low-dose spironolactone as he feels whenever he consume high potassium his blood pressure goes down. -- Since blood pressure improved and heart rate control and did not have any other symptoms at this time he is considering just going home and taking rest and monitoring the blood pressure while waiting for the results of above workup, which seems reasonable. Since he was already after he goes home his blood pressure might go up again and he may end up coming to the ER recommended to start on very low-dose of labetalol to be taken at home to have avoid hypertensive urgency and need for ER visit. He would still like to wait and continue to monitor without antihypertensive medication at this point. -- No indication for any other nephrology follow-up or workup at this time. Recommended to have close monitoring and follow-up with his PCP as an outpatient. GERD- Continue esomeprazole/pantoprazole Depression with anxiety- Patient asked that stay with him this evening On no regular treatment at this time Admission HPI Per Admitting Provider The patient is a 64-year-old male with a past medical history BPH with LUTS, vitamin D deficiency, goiter, depression with anxiety, GERD without esophagitis, peripheral neuropathy, nonulcer dyspepsia, and solitary thyroid nodule. He presents to the emergency department due to concerns regarding episodes of facial flushing, and when he checks his blood pressure and heart rate at time he is found that they both increased. He denies any alcohol or drug use, and he does not smoke. He engages in regular exercise. He denies any recent travels or sick exposures. He reports that his salt intake is normal, and denies any excessive caffeine use or decongestant use. Discharge Exam Lungs clear to auscultation b/l Heart RRR PA Soft, NT, ND, BS+ Skin no rash AAO#3, Non focal Discharge Plan Discharge Items Patient Disposition: Home - Self-Care Reason For Visit: VOLATILE BP, HR AND FACIAL FLUSH Discharge Diagnosis: Hypertension Activity: Resume your previous activity Non-emergency contact: Primary Care Provider Call non-emergency contact if: you have any medication questions and your symptoms worsen Follow-up/Referrals: Ivone Thomas MD [Primary Care Provider] - Diet: Regular Addtl Attending Provider Instructions: Follow up with primary care Pending Studies at Discharge: Yes Stand-Alone Forms: My [employer], Smoking Cessation Medications and DC Order Prescriptions: Continued esomeprazole magnesium [address] for susp in packet 20 mg PO DAILY gabapentin 300 mg capsule 300 mg PO TID PRN (Reason: Pain) Discharge Orders: Discharge Order (Routine); Ordered 07/26/24 Ordered By: Raisa Robles Admission Data Admit Date/Time: 07/25/24 23:00 Attending Provider: Raisa Robles Admit Provider: Yadiel Tobin Primary Care Provider: Ivone Thomas Other Providers: Yadiel Tobin; Susana Spencer Other Interventions: Discharge Summary Assessment (RN) Last Done: 07/26/24 14:02 Hospital Stay Data Consultations 07/25/24 22:13 ED Decision to Admit Stat 07/26/24 03:50 Consult Nephrology Routine Diagnostic Imagining Performed 07/25/24 22:40 US duplex renal art/vein BI Stat Pending Results Patient Have Any Pending Studies at Discharge: Yes Discharge Instructions Given to Patient (Per Discharging Provider) Follow up with primary care Total Time Total Time Spent Total Time Spent (In Minutes): 35 min Coding Level of Care Code 96110 INP/OBS DISCH >30 MIN Diagnoses Tachycardia R00.0 Facial flushing R23.2 Hypertension I10 Hypertension type: unspecified Chronic GERD K21.9
== END 2024-07-26 14:17 | disposition home or self-care (01) ==
LOC: 2E 19:54 → ED 19:54 → SUATTDRO 23:00 → 2E 07-26 00:46

== ENCOUNTER 2025-07-11 18:23 | Inpatient (IN) ==
--- NOTE | 2025-07-11 20:55 | History & Physical Report ---
Date of Service July 11, 2025 Assessment & Plan (1) Chest pain: Plan: Chest Pain: Suspected NSTEMI Initial troponin:31>70> 434 EKG shows:NSR, no signs of acute ischemia on my interpretation CXR: pending Obtain resting ECHO Trend serial cardiac enzymes, fasting lipid panel, A1C Continue IV Heparin (started at [facility]) Refused Aspirin at [facility] due to concern for cross-contamination with gluten/soy products Checked with pharmacy regarding Aspirin and was noted to have pregelatinized starch and so patient refuses to take due to celiac disease Patient understands risks and complications of his condition and prefers to avoid Aspirin for now. 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 I have reviewed records from [facility], EKG. I spent a total [id number] coordinating, documenting, and providing care for this patient excluding time spent in the performance of separately billed services or time spent by another provider/QHP. 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 Patient states that he was tugging and turning his 14 feet boat after which patient developed chest pain retrosternal, radiating to bilateral shoulders, neck and associated with diaphoresis. He felt chest pain to be burning-like sensation, 8/10 intensity, lasting for about 10 to [address] to the hospital, his symptoms resolved. He was evaluated at [facility] and was started on IV heparin for NSTEMI and was sent to [facility] for further evaluation due to unavailability of interventional cardiology. He refused aspirin while he as he was unsure if aspirin as cross-contamination with gluten/soy. Currently patient is chest pain-free. Denies any history of dyspnea, palpitations, pedal edema, cough, fever, chills, fall, chest trauma, syncope, focal weakness, numbness, change in vision, nausea, vomiting, abdominal pain. Allergies Allergy/AdvReac Type Severity Reaction Status Date / Time doxycycline Allergy Intermediate AFTER 5-7 Verified 05/13/24 08:28 DAYS DEVELOPED A SORE THROAT Sulfa (Sulfonamide Allergy Intermediate Rash Verified 05/13/24 08:28 Antibiotics) gluten Allergy Gastrointestinal Verified 07/25/24 22:15 Upset soy Allergy Hypertensio Verified 07/25/24 22:15 n ARIANA Inhibitors AdvReac Intermediate COUGH/SORE Verified 05/13/24 08:28 THROAT amitriptyline AdvReac Intermediate FREQUENT Verified 05/13/24 08:28 URINATION amoxicillin AdvReac Intermediate Hypertensio Verified 05/13/24 08:28 n bismuth subsalicylate AdvReac Intermediate RINGING IN Verified 05/13/24 08:28 [From Pepto-Bismol] EARS ciprofloxacin AdvReac Intermediate NEUROPATHY Verified 05/13/24 08:28 IN HANDS clindamycin AdvReac Intermediate Diarrhea Verified 05/13/24 08:28 metronidazole AdvReac Intermediate NEUROPATHY Verified 05/13/24 08:28 IN HANDS prednisone AdvReac Intermediate NAUSEA/FREQUENT Verified 05/13/24 08:28 URINATION amlodipine AdvReac Unknown Tachycardia Verified 07/26/24 01:09 Home Medications Medication Instructions Recorded Confirmed Type esomeprazole magnesium 20 mg 20 mg PO DAILY 05/13/24 07/25/24 History granules delayed release for susp Past Med/Surg History Problem List (Updated 07/11/25 @ 22:07 by Ted Stewart MD) Chest pain Labile hypertension Tachycardia (Acute) Facial flushing (Acute) Hypertension (Acute) Chronic rhinitis LPRD (laryngopharyngeal reflux disease) Anxiety Hypertension Chronic GERD BPH loc w urin obs/LUTS Vitamin D deficiency Goiter Actinic keratitis Malabsorption Screening, lipid Actinic keratitis Screening, lipid Actinic keratosis Hyperkalemia Throat discomfort Dysuria Benign essential hypertension Sebaceous hyperplasia Depression with anxiety (Chronic) Erectile dysfunction (Chronic) GERD without esophagitis (Chronic) Globus sensation (Acute) Hypercholesterolemia (Chronic) NUD (nonulcer dyspepsia) (Chronic) Peripheral neuropathy (Chronic) Sensorineural hearing loss (SNHL) of both ears (Chronic) Solitary thyroid nodule (Acute) White coat syndrome without hypertension (Chronic) Actinic keratosis of multiple sites of head and neck (Acute) Cryo-therapy done on the nose w/o difficulty. SPF over 50 applied every 2 hrs avoids mid day sun 11-4 during the day. Medical History Celiac disease Pertrochanteric fracture of femur Hypertension Surgical History History of colonoscopy History of tonsillectomy and adenoidectomy History of esophagogastroduodenoscopy (EGD) History of cholecystectomy History of cataract surgery Family History Mother Anxiety Diabetes Gallbladder disease Hypertension Cancer Skin Parkinson disease Asthma Grandfather Heart disease Hypertension Stroke Father Lung disease Social History (Updated 07/11/25 @ 21:58 by Ted Stewart MD) Smoking Status: Former smoker Tobacco Type: Cigarettes Second Hand Exposure: No; Do You Dip or Chew Tobacco: No; Hx Alcohol Use: No Hx Substance Use: No Preferred Language: Hebrew Communication Ability: Effective Visual Impairment: No Limitations Hearing Ability: Normal [employer] Required: No Beliefs That Will Affect Care: None marital status: Current Living Situation: Other Current Living Situation Comment: Domestic partner current occupational status: retired and disabled Feels Safe at Home: Yes Childhood Exposure to Second-Hand Smoke: Yes caffeine: No Dental Care, Regularly: Yes Physical Activity Frequency: Daily Seatbelt Use: always Sunscreen Use: Yes Assistive Devices: Glasses Review of Systems Review of Systems: All systems reviewed & are unremarkable except as noted in Subjective Physical Exam Physical Exam: Physical Exam: Vitals signs as noted above General Appearance:Overweight, no apparent distress Head: normocephalic, Atraumatic Eyes: normal inspection, EOMI Neck: supple, Trachea midline Respiratory/Chest: Normal breath sounds, CTA, No accessory muscle use Cardiovascular: S1, S2, No murmur Abdomen/GI:Soft, Non tender, Bowel sounds present Extremities/Musculoskeletal:normal inspection, no edema Neurologic/Psych:AAOX3, grossly no focal neurological deficits Skin: normal color, warm Results & Data Results & Data Vital Signs (Past 12 Hours) Vital Signs Resp BP Pulse Ox O2 Del Method 07/11/25 20:20 22 195/108 H 98 Room Air Laboratory Results Blood work from 07/11/2024 and [facility] WBC 5.2, hemoglobin 15.7, hematocrit 45.7, MCV 95.2, platelet count 1 45K, sodium 137, potassium 4.2, chloride 104, bicarbonate 21, BUN 19, creatinine 1.0, anion gap 12, glucose 132, calcium 8.8. INR 1.0, initial troponin 31, repeat 70. Diagnostic Findings --CXR:Pending Medications Administered Home Medications Medication Instructions Recorded Confirmed esomeprazole magnesium 20 mg 20 mg PO DAILY 05/13/24 07/25/24 granules delayed release for susp ECG Additional Comments: --EKG:EKG showed NSR, no signs of acute Ischemia
[2025-07-11] MEDS ORDERED: POLYETHYLENE (MIRALAX) 17 GM PACK PO PRN (20:56)
[2025-07-11] MEDS ORDERED: NITROGLYCERIN SL 0.4 MG/TAB TAB SL PRN (20:56)
[2025-07-11] MEDS ORDERED: ACETAMINOPHEN 325 MG TAB PO PRN (20:56)
[2025-07-11] MEDS ORDERED: ONDANSETRON INJ 2 MG/ML 2 ML VIAL IV PRN (20:56)
[2025-07-11] MEDS ORDERED: LABETALOL HCL IV 5 MG/ML 20ML IV PRN (21:50)
[2025-07-11] MEDS: HEPARIN 25000 UNIT/500 ML D5W 25,000 UNITS/500 ML BAG IV SCH (22:08)
[2025-07-11] MEDS: Heparin IV Adult Wt-Based Standard *NO* INITIAL Bolus Protocol IV STA (22:09)
[2025-07-11] MEDS: LACTATED RINGER'S 1,000 ML IV ONE (22:13)
[2025-07-12 00:37] LABS: ANTI-Xa, UFH(UnfractionatedHep 1.01 IU/ml (0.3-0.7)
--- NOTE | 2025-07-12 00:54 | XRay Report ---
Exam(s): XR CXR 1 VIEW EXAM: XR Chest, 1 View CLINICAL HISTORY: Reason for exam: chest pain. TECHNIQUE: Frontal view of the chest. COMPARISON: 07/25/2024 FINDINGS: Lungs: No consolidation. Linear atelectasis at the left lung base. Pleural space: No significant pleural effusion. No pneumothorax. Heart: No cardiomegaly or pulmonary vascular congestion. Bones/joints: No acute fracture. No dislocation. IMPRESSION: No evidence of acute cardiopulmonary disease. Electronically signed by: Shanti Vázquez M.D. 07/12/25 00:53 AM
[2025-07-12 03:34] LABS: Hematocrit (blood only) 42.1 % (42.0-52.0); Hemoglobin 14.9 g/dl (14.0-18.0); Mean Corpuscular Hemoglobin 32.1 pg (25.0-34.0); Mean Corpuscular Volume 90.7 fL (80.0-100.0); Platelet Count 129 K/uL (130-400); RDW Standard Deviation 41.1 fL (36.4-46.3); Red Blood Count 4.64 M/uL (4.70-6.10); White Blood Count 5.10 K/ul (4.8-10.8)
[2025-07-12 03:49] LABS: Anion Gap 8.0 (3-11); Blood Urea Nitrogen 8.0 mg/dl (6-23); Calcium 8.9 mg/dl (8.6-10.3); Carbon Dioxide 23.0 mmol/L (21-32); Chloride 107.0 mmol/L (98-107); Cholesterol 198.0 mg/dl (0-200); Creatinine Clr Calc Pharmacy 99.5 ml/min; Glucose 101.0 mg/dl (70-99(Fasting)); HDL Cholesterol 37.0 mg/dl; Magnesium 1.9 mg/dl (1.7-2.4); Potassium 3.7 mmol/L (3.5-5.1); Sodium 138.0 mmol/L (136-145); Triglycerides 84.0 mg/dl (0-150)
[2025-07-12 04:03] LABS: Thyroid Stimulating Hormone 1.488 uIu/ml (0.300-4.500)
[2025-07-12 07:15] LABS: Hemoglobin A1C 5.2 % (4.5-5.6)
--- NOTE | 2025-07-12 08:59 | XCELERA ---
[id number] \\[id number]
[2025-07-12] MEDS ORDERED: ASPIRIN 81 MG ECTAB PO SCH (09:00)
[2025-07-12] MEDS: ESOMEPRAZOLE MAGNESIUM 20 MG PO SCH (09:22)
--- NOTE | 2025-07-12 09:55 | Cardiology Consultation ---
Date of Consultation July 12, 2025 Assessment & Plan (1) NSTEMI (non-ST elevated myocardial infarction): * Patient chest pain-free. * After long discussion with patient having received information from our clinical pharmacy, he was agreeable to proceeding with a loading dose of aspirin 324 mg chewed followed by enteric-coated aspirin 81 mg daily. He was concerned about it having gluten components given his celiac disease. We discussed that at present, benefits with regards to taking aspirin in the setting of an acute coronary syndrome outweigh the potential risks. * Continue unfractioned heparin * Proceed with diagnostic coronary angiography. Risks and benefits discussed with patient. (2) Hypertension: * Patient with history of labile hypertension. At present, blood pressure much improved compared to when he arrived last night will continue monitor without medication for now given the patient's multiple sensitivities in effort to only add 1 medication at a time. (3) Dyslipidemia: * Will add atorvastatin 40 mg daily. Plans to space this out after he receives the aspirin in case of side effect so that we can distinguish between potential drug intolerances. History of Present Illness Attending Physician: Marquise Lagunas MD History of Present Illness Mr Eagle is a 65 year old male seen in cardiology consultation per the request of Dr Lagunas for the evaluation of chest pain and NSTEMI. The patient is accompanied by his spouse and is seen in room 209. He states that he was in his normal state of health yesterday. He was doing some physical chores including winterizing a boat. Together with his spouse they lifted a 14 foot alluminum boat to turn is up side down. He then did a few other tasks. He initially felt well while he was doing these things, but after he finished and took a shower he had onset of an epigastric discomfort with subsequent pain in his shoulders bilaterally and down his arms. He noted that he was perspiring to a mild degree. He had what he describes as profound symptoms with severe discomfort for about 14 minutes. He had his spouse start to drive him to the emergency department at [facility] but he felt better on the way. They stopped for a few minutes at the grocery store before he subsequently presented to the emergency department at [facility] yesterday afternoon. His systolic blood pressures in the 140s to 150s on arrival there. EKG without acute ischemic changes. His initial high sensitive troponin was mildly elevated at 31 NG per mL and increased to 70 after 1 hour. He was asymptomatic on arrival there. Discussion took place with regards to transferring him to a cardiac catheterization capable facility and he was transferred to [facility] for for further evaluation. Follow-up high-sensitivity troponin high levels (different assay with different scale) revealed persistent and uptrending elevation at 434 PG per mL and 748 PG per mL. He had no recurrence of symptoms overnight last night and at present feels well without any chest discomfort arm pain or jaw discomfort. His past history is notable for having sensitivities to multiple medications. He has celiac disease and needs to avoid gluten products. A year ago in July, he had been admitted to this institution with labile hypertension with presenting systolic blood pressures close to 200 mmHg. Extensive workup performed at that time including serum catecholamines and serum metanephrines which was normal. He had a renal artery duplex that was normal at that time. Ultimately the blood pressure improved on its own and he has not been on treatment for hypertension in the meantime. 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 [employer] Allergies Allergy/AdvReac Type Severity Reaction Status Date / Time doxycycline Allergy Intermediate AFTER 5-7 Verified 05/13/24 08:28 DAYS DEVELOPED A SORE THROAT Sulfa (Sulfonamide Allergy Intermediate Rash Verified 05/13/24 08:28 Antibiotics) gluten Allergy Gastrointestinal Verified 07/25/24 22:15 Upset soy Allergy Hypertensio Verified 07/25/24 22:15 n ARIANA Inhibitors AdvReac Intermediate COUGH/SORE Verified 05/13/24 08:28 THROAT amitriptyline AdvReac Intermediate FREQUENT Verified 05/13/24 08:28 URINATION amoxicillin AdvReac Intermediate Hypertensio Verified 05/13/24 08:28 n bismuth subsalicylate AdvReac Intermediate RINGING IN Verified 05/13/24 08:28 [From Pepto-Bismol] EARS ciprofloxacin AdvReac Intermediate NEUROPATHY Verified 05/13/24 08:28 IN HANDS clindamycin AdvReac Intermediate Diarrhea Verified 05/13/24 08:28 metronidazole AdvReac Intermediate NEUROPATHY Verified 05/13/24 08:28 IN HANDS prednisone AdvReac Intermediate NAUSEA/FREQUENT Verified 05/13/24 08:28 URINATION amlodipine AdvReac Unknown Tachycardia Verified 07/26/24 01:09 Home Medications Medication Instructions Recorded Confirmed Type esomeprazole magnesium 20 mg 20 mg PO DAILY 05/13/24 07/25/24 History granules delayed release for susp Patient History Medical History Celiac disease Pertrochanteric fracture of femur Hypertension Surgical History History of colonoscopy History of tonsillectomy and adenoidectomy History of esophagogastroduodenoscopy (EGD) History of cholecystectomy History of cataract surgery Family History Mother Anxiety Diabetes Gallbladder disease Hypertension Cancer Skin Parkinson disease Asthma Grandfather Heart disease Hypertension Stroke Father Lung disease Social History Smoking Status: Former smoker Tobacco Type: Cigarettes Second Hand Exposure: No; Do You Dip or Chew Tobacco: No; Tobacco Cessation Education Requested by Patient: No Hx Alcohol Use: No Hx Substance Use: No Preferred Language: Icelandic Communication Ability: Effective Visual Impairment: No Limitations Hearing Ability: Normal Director Telemetry Required: No Beliefs That Will Affect Care: None marital status: Current Living Situation: Other Current Living Situation Comment: Domestic partner current occupational status: retired and disabled Other Information That Helps Us Care for You: No Feels Safe at Home: Yes Safety Concerns: Feels Safe At This Time Childhood Exposure to Second-Hand Smoke: Yes caffeine: No Dental Care, Regularly: Yes Physical Activity Frequency: Daily Seatbelt Use: always Sunscreen Use: Yes Assistive Devices: Glasses Review of Systems Review of Systems: All systems reviewed & are unremarkable except as noted in HPI & below Physical Exam Physical Exam: General: no acute distress and stated age Eyes: conjunctiva are pink and non-injected, sclera clear Neck: normal jugular venous pulse, no hepatojugular reflux Chest: normal shape and normal respiratory effort Lungs: clear to auscultation and percussion Cardiac Exam: - regular heart sounds, no murmurs, rubs, or gallops, no jugular venous distention Abdomen: abdomen soft, non-tender, no abnormal masses and no hepatosplenomegaly Extremities: no edema and no cyanosis Neuro:awake, conversant, follows commands, no focal motor deficits Psych: appropriate affect and insight. Results & Data Vital Signs (Past 12 Hours) Vital Signs Temp Pulse Pulse Resp BP Pulse Ox O2 Del Method 07/12/25 08:00 36.8 C 76 16 143/76 H 99 Room Air 07/12/25 03:22 36.8 C 71 18 152/88 H 97 Room Air 07/12/25 00:50 37.0 C 91 H 17 155/90 H 95 Room Air 07/11/25 22:19 36.9 C 07/11/25 22:00 109 H Laboratory Results Cardiac Enzymes 07/11/25 07/12/25 Range/Units 21:32 03:16 Troponin I High Sens 434.3 H* 748.0 H* D (0-20) pg/ml Lipids 07/12/25 Range/Units 03:16 Triglycerides 84 (0-150) mg/dl Cholesterol 198 (0-200) mg/dl HDL Cholesterol 37 mg/dl Cholesterol/HDL Ratio 5.4 H (0-5) LDL: 144 mg/dl CBC 07/12/25 Range/Units 03:16 WBC 5.10 (4.8-10.8) K/ul RBC 4.64 L (4.70-6.10) M/uL Hgb 14.9 (14.0-18.0) g/dl Hct 42.1 (42.0-52.0) % Plt Count 129 L (130-400) K/uL Comprehensive Metabolic Panel 07/12/25 Range/Units 03:16 Sodium 138 (136-145) mmol/L Potassium 3.7 (3.5-5.1) mmol/L Chloride 107 (98-107) mmol/L Carbon Dioxide 23 (21-32) mmol/L BUN 8 (6-23) mg/dl Creatinine 0.88 (0.6-1.4) mg/dl Glucose 101 H (70-99(Fasting)) mg/dl Calcium 8.9 (8.6-10.3) mg/dl Intake and Output 07/11/25 07/12/25 07/12/25 22:59 06:59 14:59 Intake Total 200 / 273.467 73.467 / 273.467 97.533 / 97.533 Output Total 300 / 700 400 / 700 Balance -100 / -426.533 -326.533 / -426.533 97.533 / 97.533 Intake: IV 73.467 / 73.467 97.533 / 97.533 Heparin 49376 Unit/500 ml D5w 73.467 / 73.467 97.533 / 97.533 25,000 units In 500 ml @ 1,100 UNITS/HR 22 mls/hr IV .[id number] [facility] Rx#:[id number] Oral 200 / 200 Output: Urine 300 / 700 400 / 700 Other: Weight 98.7 kg 98.7 kg Weight Measurement Method Standing Scale Diagnostic Findings EKG performed this morning at 07/12/2025 at 624 and interpreted independently revealed sinus rhythm at 70 bpm. Normal ECG. Unchanged compared to the previous Transthoracic echocardiogram performed today 07/12/2025: Mild concentric left ventricular hypertrophy, no left ventricular regional wall motion abnormalities, normal LVEF in the range of 55 to 60% No significant valvular heart disease Grade 1 diastolic dysfunction (mild). The aortic root is borderline dilated, 3.8 cm. Compared to the report of the previous study dated 07/22/2020 4 aortic root is measured to be 3.6 cm at that time PG Care Time/CCT Total # of Minutes Spent Total Time Spent with Patient: Total time spent is greater than 50% in coordination of care (as documented) at patient's floor/unit and/or counseling patient: Coding Level of Care Code 14750 IN/OBS CONSULT LVL 5,80M Diagnoses NSTEMI (non-ST elevated myocardial infarction) I21.4 Hypertension I10 Hypertension type: unspecified Dyslipidemia E78.5 (2) Hypertension Hypertension type: unspecified Qualified Code(s): I10 - Essential (primary) hypertension
[2025-07-12 10:19] LABS: ANTI-Xa, UFH(UnfractionatedHep 0.56 IU/ml (0.3-0.7)
[2025-07-12] MEDS: ATORVASTATIN 40 MG TAB PO SCH (10:50)
[2025-07-12] MEDS: ASPIRIN 81 MG CHEW PO ONE (10:50)
--- NOTE | 2025-07-12 11:14 | Hospitalist Progress Note ---
Date of Service July 12, 2025 Assessment & Plan (1) Chest pain: Plan: NSTEMI Presented with Chest Pain Initial troponin:31>70> 434 that did not warrant further to 700s and the latest 1 came down to 596.9 EKG shows:NSR, no signs of acute ischemia on my interpretation Obtain resting ECHO -mild concentric LVH, no regional wall motion abnormalities, LV systolic function is normal with EF 55 to 60%, RV is normal in size and function, grade 1 diastolic dysfunction, aortic root is borderline dilated at 3.8 cm Lipid profile showed triglyceride 84, cholesterol 198, LDL 144 and HDL 37, hemoglobin A1c is 5.2 Continue IV Heparin (started at [facility]) Initially refused to take aspirin due to not knowing the ingredients, following pharmacy reassurance and printout he received 324 mg of aspirin Appreciate cardiology input and recommendation Will have cardiac cath sometime today Hypertension Previously on antihypertensives per patient Reports being very sensitive to antihypertensives in the past BP elevated currently likely situations Low dose IV Labetalol PRN Monitor BP -blood pressure remains stable Celiac disease Follows with Allgery/Immunology as outpatient Significant gluten intolerance Suffers from generalized symptoms if taken gluten Extra precaution should be taken provide any medications and/or food before giving to the patient GERD Hiatal Hernia Continue PPI Other Chronic Conditions: Seborrheic dermatitis 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 Glaucoma DVT Px: IV Heparin Code Status Full Code Disposition Telemetry Admission and Anticipated Discharge Date Admission Date: July 11, 2025 Subjective 07/12/2025 The patient was seen and examined in telemetry unit He was transferred from [facility] with increased troponin and chest pain for cardiac cath Does not have any more chest pain He mentioned to have strong history of gluten insensitivity Review of Systems Review of Systems: All systems reviewed and are unremarkable except as noted below Physical Exam Physical Exam: Lying in bed without any acute distress Constitutional: well developed, well nourished and + obese; not ill appearing Eyes: PERRL, conjunctivae normal, anicteric sclerae ENMT: external ear and nose normal, oropharynx normal Neck: trachea midline, no thyromegaly Respiratory: no respiratory distress Auscultation: lungs clear to auscultation bilaterally Cardiovascular: Rate/Rhythm: regular rate and regular rhythm; not tachycardic Heart Sounds: normal S1 and normal S2; no murmur Extremities: no edema Gastrointestinal (Abdomen): Inspection/Auscultation: normal bowel sounds; abdomen not distended Percussion/Palpation: abdomen soft; abdomen nontender Musculoskeletal: No acute arthritis involving any of the joint Neurologic: normal touch/pain/proprioception and moves all extremities; no foc al motor deficits Psychiatric: A+Ox3, euthymic affect Lymphatic: no cervical or axillary lymphadenopathy Results & Data Results & Data Vital Signs (Past 12 Hours) Vital Signs Temp Pulse Resp BP Pulse Ox O2 Del Method 07/12/25 08:00 36.8 C 76 16 143/76 H 99 Room Air 07/12/25 03:22 36.8 C 71 18 152/88 H 97 Room Air 07/12/25 00:50 37.0 C 91 H 17 155/90 H 95 Room Air Laboratory Results Short CBC 07/12/25 Range/Units 03:16 WBC 5.10 (4.8-10.8) K/ul Hgb 14.9 (14.0-18.0) g/dl Hct 42.1 (42.0-52.0) % Plt Count 129 L (130-400) K/uL [facility] 07/12/25 03:16 Sodium 138 Potassium 3.7 Chloride 107 Carbon Dioxide 23 BUN 8 Creatinine 0.88 Glucose 101 H Calcium 8.9 Medications Administered Current Inpatient Medications Acetaminophen (Acetaminophen 325 Mg Tab) 650 mg PO Q4H PRN PRN Reason: Pain or Fever Stop: 08/10/25 20:55 Aspirin (Aspirin 81 Mg Ectab) 81 mg PO [facility] Stop: 08/12/25 08:59 Atorvastatin Calcium (Atorvastatin 40 Mg Tab) 40 mg PO [facility] Stop: 08/11/25 09:59 Last Admin: 07/12/25 10:54 Dose: 40 mg Esomeprazole Magnesium (Esomeprazole Magnesium [address] Capsule) 20 mg PO [facility] Stop: 08/11/25 08:59 Last Admin: 07/12/25 09:22 Dose: 20 mg Heparin Sodium/Dextrose (Heparin 53978 Unit/500 Ml D5w) 25,000 units in 500 mls @ 22 mls/hr IV .[id number] [facility]; Protocol Stop: 08/10/25 21:59 Last Titration: 07/12/25 07:06 Dose: 1,100 units/hr, 22 mls/hr Lactated Ringer's (Lr) 1,000 mls @ 50 mls/hr IV .Q20H ONE Stop: 07/12/25 17:48 Last Admin: 07/11/25 22:13 Dose: 50 mls/hr Labetalol HCl (Labetalol Hcl Iv 5 Mg/Ml 20ml) 5 mg IV Q6H PRN PRN Reason: Hypertension SBP>180 Stop: 08/10/25 21:49 Nitroglycerin (Nitroglycerin Sl 0.4 Mg/Tab Tab) 0.4 mg SL Q5M PRN PRN Reason: Chest Pain Stop: 08/10/25 20:55 Ondansetron HCl (Ondansetron Inj 2 Mg/Ml 2 Ml Vial) 4 mg IV Q6H PRN PRN Reason: Nausea Stop: 08/10/25 20:55 Polyethylene Glycol (Polyethylene (Miralax) 17 Gm Pack) 17 gm PO DAILY PRN PRN Reason: Constipation Stop: 08/10/25 20:55
--- NOTE | 2025-07-12 12:26 | Pre Anesthesia Assessment ---
Date of Service July 12, 2025 Pre Sedation Assessment Vital Signs Temp Pulse Pulse Resp BP BP Pulse Ox 07/12/25 12:13 36.9 C 84 16 169/94 H 97 07/12/25 08:00 36.8 C 76 16 143/76 H 99 07/12/25 03:22 36.8 C 71 18 152/88 H 97 07/12/25 00:50 37.0 C 91 H 17 155/90 H 95 07/11/25 22:19 36.9 C 07/11/25 22:00 109 H 07/11/25 21:33 168/90 H 07/11/25 20:59 169/100 H 07/11/25 20:24 100 H 07/11/25 20:20 22 195/108 H 98 O2 Del Method 07/12/25 12:13 Room Air 07/12/25 08:00 Room Air 07/12/25 03:22 Room Air 07/12/25 00:50 Room Air 07/11/25 22:19 07/11/25 22:00 07/11/25 21:33 07/11/25 20:59 07/11/25 20:24 07/11/25 20:20 Room Air Cardiovascular RRR, no murmur, no edema Respiratory normal respiratory effort, lungs clear to auscultation Pre-Sedation Airway Assessment Smoking Status: Former smoker Hx Sleep Apnea: No Short, Thick Neck: No Thyromental Distance: > or= 3.5 Finger Breadths Oral Cavity: + WNL Mallampati Class: III ASA: ASA3 NPO Status Date of Last Intake of Fluids: 07/12/25 Time of Last Intake of Fluids: 08:00 Last Oral Intake of Fluids Comment: sip with meds Date of Last Intake of Solid Food: 07/11/25 Notes The planned sedation has been discussed with the patient. Informed Consent was obtained. I have identified the patient, determined the appropriateness of sedation and have assessed the patient immediately prior to the procedure. All medicine(s) and interventions are by my order.
[2025-07-12] MEDS: MIDAZOLAM HCL 1 MG/ML 2ML VIAL ONE ×2 (13:02→13:27)
[2025-07-12] MEDS: NITROGLYCERIN/D5W 100MCG/ML 20ML SYR ONE (13:02)
[2025-07-12] MEDS: niCARdipine 2,000 MCG/20 ML SYR ONE (13:02)
[2025-07-12] MEDS: diphenhydrAMINE 50 MG/ML VIAL ONE (13:03)
[2025-07-12] MEDS: HEPARIN (PORCINE) 1000 UNIT/ML 10 ML (CATH LAB USE ONLY) ONE (13:27)
[2025-07-12] MEDS: OPTIRAY 350 ONE (13:27)
--- NOTE | 2025-07-12 13:32 | Post Anesthesia Assessment ---
Date of Service July 12, 2025 Post Sedation Assessment Vital Signs Temp Pulse Pulse Resp BP BP Pulse Ox 07/12/25 12:13 36.9 C 84 16 169/94 H 97 07/12/25 08:00 36.8 C 76 16 143/76 H 99 07/12/25 03:22 36.8 C 71 18 152/88 H 97 07/12/25 00:50 37.0 C 91 H 17 155/90 H 95 07/11/25 22:19 36.9 C 07/11/25 22:00 109 H 07/11/25 21:33 168/90 H 07/11/25 20:59 169/100 H 07/11/25 20:24 100 H 07/11/25 20:20 22 195/108 H 98 O2 Del Method 07/12/25 12:13 Room Air 07/12/25 08:00 Room Air 07/12/25 03:22 Room Air 07/12/25 00:50 Room Air 07/11/25 22:19 07/11/25 22:00 07/11/25 21:33 07/11/25 20:59 07/11/25 20:24 07/11/25 20:20 Room Air Recovery Score Activity: Moves 4 extremities Respiration: Deep Breath/Cough Circulation: +/-20% PreAnes Value Consciousness: Fully Awake Oxygen Saturation: > 92% On Room Air Discharge Sedation Level of Care: Fast Track Phase II Post Sedation Plan On clinical assessment, the patient appears to have tolerated the sedation without complications. Patient is recovering as anticipated. Patient will continue to be monitored by nursing and may be discharged when sedation discharge criteria are met per below protocol. Upon Completions of procedure up to 15 minutes continue every 5 minute vital signs and the P.A.R. score; then discharge to a Phase I or Fast Track to Phase II per the following guidelines: * Discharge Patient to appropriate Phase II area if PAR is 8 or greater or return to pre- procedure baseline. The post - procedure orders will be as directed. * If PAR score is less than 8 or not return to pre-procedure baseline then patient will follow Phase I monitoring till PAR is reached for Phase II. The Phase I may be done in procedure room or may call to secure a Phase I area. * If naloxone or flumazenil are used for reversal, hold in Phase I for continued monitoring from when last reversal dose was given for a minimum of 60 minutes or longer pending the nurse and/or physician discretion of patient condition before discharge to Phase II. Please call the Sedation Physician to re-evaluate and complete post-note for discharge to Phase II area. Do NOT discharge from procedure sedation or Phase 1 until post- sedation evaluation note is complete by procedure /sedation MD Sedation Discharge Instructions to be given to the patient at discharge to home.
[2025-07-12] MEDS ORDERED: NITROGLYCERIN SL 0.4 MG/TAB TAB SL PRN (13:33)
[2025-07-12] MEDS ORDERED: ONDANSETRON INJ 2 MG/ML 2 ML VIAL IV PRN (13:33)
[2025-07-12] MEDS ORDERED: ATROPINE SULFATE 0.1 MG/ML 10ML SYR IV PRN (13:33)
[2025-07-12] MEDS: TICAGRELOR 90 MG TAB ONE (13:35)
[2025-07-13] MEDS ORDERED: TICAGRELOR 90 MG TAB PO SCH
[2025-07-13 03:42] VITALS: O2SAT 97
[2025-07-13 08:40] LABS: Anion Gap 6.0 (3-11); Blood Urea Nitrogen 11.0 mg/dl (6-23); Calcium 9.0 mg/dl (8.6-10.3); Carbon Dioxide 23.0 mmol/L (21-32); Chloride 108.0 mmol/L (98-107); Creatinine Clr Calc Pharmacy 96.7 ml/min; Glucose 95.0 mg/dl (70-99(Fasting)); Magnesium 1.9 mg/dl (1.7-2.4); Potassium 4.0 mmol/L (3.5-5.1); Sodium 137.0 mmol/L (136-145)
[2025-07-13] MEDS: ASPIRIN 81 MG ECTAB PO SCH (08:42)
[2025-07-13] MEDS: TICAGRELOR 90 MG TAB PO SCH (08:42)
--- NOTE | 2025-07-13 11:27 | Cardiology Progress Note ---
Date of Service July 13, 2025 Assessment & Plan (1) NSTEMI (non-ST elevated myocardial infarction): Plan: * Patient with a hemodynamically significant lesion of the late proximal to mid left anterior sending coronary artery, IFR 0.86 (less than 0.9 hemodynamically significant) * Underwent PCI, 2.75 mm x 18 mm Onys Evangeline drug eluting stent on 07/12/25. * Continue ASA 81 mg daily (lifelong therapy) * Ticagrelor (Brilinta) 90 mg twice daily x 1 year. (2) Hypertension: Plan: * Patient with history of labile hypertension and medication sensitivity. * Continue to monitor without treatment per patient preference (3) Dyslipidemia: Plan: * LDL goal less than 70 mg /dl , and ideally less than 55 mg/dl. * Atorvastatin 40 mg daily Plan Counselled patient that in most patients with similar presentation and vitals, would also add treatment with a beta geoff and ACEI / ARB. Patient however, with past medication intolerances. After prolonged negotiation, will limit treatment to ASA, Brilinta, and atorvastatin. Plan for outpatient cardiac rehab (will be ordered at cardiology outpt follow up). Stable for discharge. Pt uses [facility] pharmacy. Requests home pack is possible due to winter road conditions. Miri Field DO Admission and Anticipated Discharge Date Admission Date: July 11, 2025 Subjective Patient seen in cardiology follow-up. Patient feels well. Denies chest pain , shortness of breath, or palpitations. Review of Systems Review of Systems: All systems reviewed & are unremarkable except as noted in HPI & below Physical Exam Physical Exam: General: no acute distress and stated age Eyes: conjunctiva are pink and non-injected, sclera clear Neck: normal jugular venous pulse, no hepatojugular reflux Chest: normal shape and normal respiratory effort Lungs: clear to auscultation and percussion Cardiac Exam: - regular heart sounds, no murmurs, rubs, or gallops, no jugular venous distention Abdomen: abdomen soft, non-tender, no abnormal masses and no hepatosplenomegaly Extremities: no edema and no cyanosis Neuro:awake, conversant, follows commands, no focal motor deficits Psych: appropriate affect and insight. General: no acute distress and stated age Results & Data Vital Signs (Past 12 Hours) Vital Signs Temp Pulse Pulse Resp BP BP Pulse Ox 07/13/25 08:00 70 07/13/25 07:34 36.5 C 63 13 157/79 H 97 07/13/25 03:41 37 C 74 16 155/89 H 97 O2 Del Method 07/13/25 08:00 07/13/25 07:34 Room Air 07/13/25 03:41 Room Air Laboratory Results Comprehensive Metabolic Panel 07/13/25 Range/Units 08:03 Sodium 137 (136-145) mmol/L Potassium 4.0 (3.5-5.1) mmol/L Chloride 108 H (98-107) mmol/L Carbon Dioxide 23 (21-32) mmol/L BUN 11 (6-23) mg/dl Creatinine 0.91 (0.6-1.4) mg/dl Glucose 95 (70-99(Fasting)) mg/dl Calcium 9.0 (8.6-10.3) mg/dl Intake and Output 07/12/25 07/13/25 07/13/25 22:59 06:59 14:59 Intake Total 1265.467 / 1913.000 300 / 1913.000 Output Total 500 / 2350 1250 / 2350 Balance 765.467 / -437.000 -950 / -437.000 Intake: IV 1265.467 / 1363.000 Heparin 62637 Unit/500 ml D5w 265.467 / 363.000 25,000 units In 500 ml @ 1,100 UNITS/HR 22 mls/hr IV .[id number] [facility] Rx#:[id number] Lactated Ringer's 1,000 ml @ 50 1000 / 1000 mls/hr IV .Q20H [facility] Rx#: [id number] Oral 300 / 550 Output: Urine 500 / 2350 1250 / 2350 Other: Weight 99.654 kg Weight Measurement Method Built in [facility] Diagnostic Findings EKG performed today and interpreted independently: SR at 70 bpm, normal EKG. PG Care Time/CCT Total # of Minutes Spent Total Time Spent with Patient: Total time spent is greater than 50% in coordination of care (as documented) at patient's floor/unit and/or counseling patient: Coding Level of Care Code 85531 SUB INP/OBS CARE 3/50MIN Diagnoses NSTEMI (non-ST elevated myocardial infarction) I21.4 Hypertension I10 Hypertension type: unspecified Dyslipidemia E78.5 (2) Hypertension Hypertension type: unspecified Qualified Code(s): I10 - Essential (primary) hypertension
[2025-07-13 11:35] VITALS: BP 147/81; PULSE 63; RESP 18; TEMP 97.9
--- NOTE | 2025-07-13 12:27 | Hospitalist Progress Note ---
Date of Service July 13, 2025 Assessment & Plan (1) Chest pain: Plan: NSTEMI Presented with Chest Pain Initial troponin:31>70> 434 that did not warrant further to 700s and the latest 1 came down to 596.9 EKG shows:NSR, no signs of acute ischemia on my interpretation Obtain resting ECHO -mild concentric LVH, no regional wall motion abnormalities, LV systolic function is normal with EF 55 to 60%, RV is normal in size and function, grade 1 diastolic dysfunction, aortic root is borderline dilated at 3.8 cm Lipid profile showed triglyceride 84, cholesterol 198, LDL 144 and HDL 37, hemoglobin A1c is 5.2 Continue IV Heparin (started at [facility]) Initially refused to take aspirin due to not knowing the ingredients, following pharmacy reassurance and printout he received 324 mg of aspirin Appreciate cardiology input and recommendation Status post cardiac cath with placement of drug-eluting stent in LAD Remains stable following the procedure and will be discharged on aspirin for life and Brilinta for 1 year Hypertension Previously on antihypertensives per patient Reports being very sensitive to antihypertensives in the past BP elevated currently likely situations Low dose IV Labetalol PRN Monitor BP -blood pressure remains stable Hyperlipidemia Advised to take atorvastatin 40 mg daily Celiac disease Follows with Allgery/Immunology as outpatient Significant gluten intolerance Suffers from generalized symptoms if taken gluten Extra precaution should be taken provide any medications and/or food before giving to the patient GERD Hiatal Hernia Continue PPI Other Chronic Conditions: Seborrheic dermatitis 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 Glaucoma DVT Px: IV Heparin Code Status Full Code Disposition Telemetry Admission and Anticipated Discharge Date Admission Date: July 11, 2025 Subjective 07/12/2025 The patient was seen and examined in telemetry unit He was transferred from [facility] with increased troponin and chest pain for cardiac cath Does not have any more chest pain He mentioned to have strong history of gluten insensitivity 07/13/2025 Patient was seen and examined the in telemetry unit He has been stable following the procedure Denies any significant symptoms He will be discharged home this afternoon Review of Systems Review of Systems: All systems reviewed and are unremarkable except as noted below Physical Exam Physical Exam: Lying in bed without any acute distress Constitutional: well developed, well nourished and + obese; not ill appearing Eyes: PERRL, conjunctivae normal, anicteric sclerae ENMT: external ear and nose normal, oropharynx normal Neck: trachea midline, no thyromegaly Respiratory: no respiratory distress Auscultation: lungs clear to auscultation bilaterally Cardiovascular: Rate/Rhythm: regular rate and regular rhythm; not tachycardic Heart Sounds: normal S1 and normal S2; no murmur Extremities: no edema Gastrointestinal (Abdomen): Inspection/Auscultation: normal bowel sounds; abdomen not distended Percussion/Palpation: abdomen soft; abdomen nontender Musculoskeletal: No acute arthritis involving any of the joints Neurologic: normal touch/pain/proprioception and moves all extremities; no focal motor deficits Psychiatric: A+Ox3, euthymic affect Lymphatic: no cervical or axillary lymphadenopathy Results & Data Results & Data Vital Signs (Past 12 Hours) Vital Signs Temp Pulse Pulse Resp BP BP Pulse Ox 07/13/25 11:34 36.6 C 63 18 147/81 H 97 07/13/25 08:00 70 07/13/25 07:34 36.5 C 63 13 157/79 H 97 07/13/25 03:41 37 C 74 16 155/89 H 97 O2 Del Method 07/13/25 11:34 Room Air 07/13/25 08:00 07/13/25 07:34 Room Air 07/13/25 03:41 Room Air Laboratory Results BMP 07/13/25 08:03 Sodium 137 Potassium 4.0 Chloride 108 H Carbon Dioxide 23 BUN 11 Creatinine 0.91 Glucose 95 Calcium 9.0 Medications Administered Current Inpatient Medications Acetaminophen (Acetaminophen 325 Mg Tab) 650 mg PO Q4H PRN PRN Reason: Pain or Fever Stop: 08/10/25 20:55 Aspirin (Aspirin 81 Mg Ectab) 81 mg PO [facility] Stop: 08/12/25 08:59 Last Admin: 07/13/25 08:42 Dose: 81 mg Atorvastatin Calcium (Atorvastatin 40 Mg Tab) 40 mg PO [facility] Stop: 08/11/25 09:59 Last Admin: 07/12/25 10:54 Dose: 40 mg Atropine Sulfate (Atropine Sulfate 0.1 Mg/Ml 10ml Syr) 0.5 mg IV ONCE PRN PRN Reason: bradycardia/hypotension Stop: 08/11/25 13:32 Esomeprazole Magnesium (Esomeprazole Magnesium [address] Capsule) 20 mg PO [facility] Stop: 08/11/25 08:59 Last Admin: 07/13/25 08:44 Dose: 20 mg Labetalol HCl (Labetalol Hcl Iv 5 Mg/Ml 20ml) 5 mg IV Q6H PRN PRN Reason: Hypertension SBP>180 Stop: 08/10/25 21:49 Nitroglycerin (Nitroglycerin Sl 0.4 Mg/Tab Tab) 0.4 mg SL Q5M PRN PRN Reason: Chest Pain Stop: 08/10/25 20:55 Ondansetron HCl (Ondansetron Inj 2 Mg/Ml 2 Ml Vial) 4 mg IV Q6H PRN PRN Reason: Nausea Stop: 08/10/25 20:55 Ondansetron HCl (Ondansetron Inj 2 Mg/Ml 2 Ml Vial) 4 mg IV Q6H PRN PRN Reason: Nausea And Vomiting Stop: 08/11/25 13:32 Polyethylene Glycol (Polyethylene (Miralax) 17 Gm Pack) 17 gm PO DAILY PRN PRN Reason: Constipation Stop: 08/10/25 20:55 Ticagrelor (Ticagrelor 90 Mg Tab) 90 mg PO BID [facility] Stop: 08/12/25 08:59 Last Admin: 07/13/25 08:42 Dose: 90 mg
--- NOTE | 2025-07-13 16:21 | Discharge Summary ---
Date of Service July 13, 2025 Admission HPI Per Admitting Provider Patient is a 65-year-old male with history of celiac disease, Seborrheic dermatitis, pigment dispersion syndrome of the left eye, hypertension, glaucoma and other medical problems presents with history of chest pain. Patient states that he was tugging and turning his 14 feet boat after which patient developed chest pain retrosternal, radiating to bilateral shoulders, neck and associated with diaphoresis. He felt chest pain to be burning-like sensation, 8/10 intensity, lasting for about 10 to [address] to the hospital, his symptoms resolved. He was evaluated at [facility] and was started on IV heparin for NSTEMI and was sent to [facility] for further evaluation due to unavailability of interventional cardiology. He refused aspirin while he as he was unsure if aspirin as cross-contamination with gluten/soy. Currently patient is chest pain-free. Denies any history of dyspnea, palpitations, pedal edema, cough, fever, chills, fall, chest trauma, syncope, focal weakness, numbness, change in vision, nausea, vomiting, abdominal pain. Admission Exam Per Admitting Provider Physical Exam: Physical Exam: Vitals signs as noted above General Appearance:Overweight, no apparent distress Head: normocephalic, Atraumatic Eyes: normal inspection, EOMI Neck: supple, Trachea midline Respiratory/Chest: Normal breath sounds, CTA, No accessory muscle use Cardiovascular: S1, S2, No murmur Abdomen/GI:Soft, Non tender, Bowel sounds present Extremities/Musculoskeletal:normal inspection, no edema Neurologic/Psych:AAOX3, grossly no focal neurological deficits Skin: normal color, warm Principal Diagnosis NSTEMI status post cardiac cath and drug-eluting stent placement in LAD, hypertension, celiac disease with severe gluten intolerance Discharge Exam Lying in bed without any acute distress Constitutional well developed, well nourished and + obese; not ill appearing Eyes PERRL, conjunctivae normal, anicteric sclerae ENMT external ear and nose normal, oropharynx normal Neck trachea midline, no thyromegaly Respiratory no respiratory distress Auscultation: lungs clear to auscultation bilaterally Cardiovascular Rate/Rhythm: regular rate and regular rhythm; not tachycardic Heart Sounds: normal S1 and normal S2; no murmur Extremities: no edema Gastrointestinal (Abdomen) Inspection/Auscultation: normal bowel sounds; abdomen not distended Percussion/Palpation: abdomen soft; abdomen nontender Neurologic normal touch/pain/proprioception and moves all extremities; no focal motor deficits Psychiatric A+Ox3, euthymic affect Lymphatic no cervical or axillary lymphadenopathy Discharge Data Allergies Allergy/AdvReac Type Severity Reaction Status Date / Time doxycycline Allergy Intermediate AFTER 5-7 Verified 05/13/24 08:28 DAYS DEVELOPED A SORE THROAT Sulfa (Sulfonamide Allergy Intermediate Rash Verified 05/13/24 08:28 Antibiotics) gluten Allergy Gastrointestinal Verified 07/25/24 22:15 Upset soy Allergy Hypertensio Verified 07/25/24 22:15 n ARIANA Inhibitors AdvReac Intermediate COUGH/SORE Verified 05/13/24 08:28 THROAT amitriptyline AdvReac Intermediate FREQUENT Verified 05/13/24 08:28 URINATION amoxicillin AdvReac Intermediate Hypertensio Verified 05/13/24 08:28 n bismuth subsalicylate AdvReac Intermediate RINGING IN Verified 05/13/24 08:28 [From Pepto-Bismol] EARS ciprofloxacin AdvReac Intermediate NEUROPATHY Verified 05/13/24 08:28 IN HANDS clindamycin AdvReac Intermediate Diarrhea Verified 05/13/24 08:28 metronidazole AdvReac Intermediate NEUROPATHY Verified 05/13/24 08:28 IN HANDS prednisone AdvReac Intermediate NAUSEA/FREQUENT Verified 05/13/24 08:28 URINATION amlodipine AdvReac Unknown Tachycardia Verified 07/26/24 01:09 Consultations 07/11/25 20:56 Consult Cardiology Routine Procedures Performed Operation Date: 07/12/25 11:00 Actual Procedures p Cineradiography w/Routine Exam - Joon Dhaliwal MD, PhD p Cath, Coronaries ONLY (no LV) - Joon Dhaliwal MD, PhD p Drug Eluting Stent SGl Vessel - Joon Dhaliwal MD, PhD Ordered Studies 07/12/25 10:46 CL Cath Imgs for PACS use only Stat Hospital Course (1) Chest pain: NSTEMI Presented with Chest Pain Initial troponin:31>70> 434 that did not warrant further to 700s and the latest 1 came down to 596.9 EKG shows:NSR, no signs of acute ischemia on my interpretation Obtain resting ECHO -mild concentric LVH, no regional wall motion abnormalities, LV systolic function is normal with EF 55 to 60%, RV is normal in size and function, grade 1 diastolic dysfunction, aortic root is borderline dilated at 3.8 cm Lipid profile showed triglyceride 84, cholesterol 198, LDL 144 and HDL 37, hemoglobin A1c is 5.2 Continue IV Heparin (started at [facility]) Initially refused to take aspirin due to not knowing the ingredients, following pharmacy reassurance and printout he received 324 mg of aspirin Appreciate cardiology input and recommendation Status post cardiac cath with placement of drug-eluting stent in LAD Remains stable following the procedure and will be discharged on aspirin for life and Brilinta for 1 year Hypertension Previously on antihypertensives per patient Reports being very sensitive to antihypertensives in the past BP elevated currently likely situations Low dose IV Labetalol PRN Monitor BP -blood pressure remains stable Hyperlipidemia Advised to take atorvastatin 40 mg daily Celiac disease Follows with Allgery/Immunology as outpatient Significant gluten intolerance Suffers from generalized symptoms if taken gluten Extra precaution should be taken provide any medications and/or food before giving to the patient GERD Hiatal Hernia Continue PPI Other Chronic Conditions: Seborrheic dermatitis 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 Glaucoma DVT Px: IV Heparin Code Status Full Code Disposition Telemetry Total Time Total Time Spent Total Time Spent (In Minutes): 35 Minutes Discharge Plan Discharge Items Patient Disposition: Home - Self-Care Reason For Visit: NSTEMI Discharge Diagnosis: NSTEMI status post cardiac cath and drug-eluting stent placement in LAD, hypertension, celiac disease with severe gluten intolerance Condition on Discharge: Good Activity: As commented below Activity Comment: take it easy for the next few days Non-emergency contact: Primary Care Provider Call non-emergency contact if: you have any medication questions Follow-up/Referrals: Ivone Thomas MD [Primary Care Provider] - 07/20/25 1:00 pm (Please make an appointment with your PCP within 7 days and also 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 * No lifting over 2 pounds (approximately a 1/2 gallon of milk) with the utilized arm for 24 hours. * No strenuous activity such as bowling or tennis for 3 days. * Keep the site of the procedure covered with a bandage for 24 hours. *You may shower the day after the procedure. Do not take a tub bath or submerge the puncture site in water for the next 3 days. *Do not operate any motorized equipment for 3 days. SPECIAL CARE INSTRUCTIONS: The site may be slightly bruised and sore following your procedure. Should any of the following occur, contact the Dr. who performed your procedure. 1. Redness/inflammation, swelling, chills, or fever, or colored drainage at procedure site within 3-7 days after your procedure. 2. Coldness, discoloration, ongoing numbness, severe pain, or swelling. Expect mild tingling of hand and tenderness at the puncture site for up to three days. If this persists beyond three days, or other symptoms develop, notify the Dr. who performed your procedure. BLEEDING: If the procedure site on your wrist begins to bleed, do not panic 1. Place 1 or 2 fingers firmly just slightly above the insertion site to stop the bleeding. You may be able to feel your pulse as you hold pressure. 2. Lift your finger after 5 minutes to see if the bleeding has stopped. 3. Once the bleeding has stopped, gently wipe the wrist area clean with a bandage. * If the bleeding from your wrist does not stop after 10 minutes, or if there is a large amount of bleeding or spurting, call 911 (do not drive yourself to the hospital). SKIN IRRITATION: * You may experience some redness and/or swelling in the area where radiation was administered. If any skin irritation occurs, please contact your family physician. FOLLOW UP VISIT: Keep any scheduled doctor appointments. Pending Studies at Discharge: No Stand-Alone Forms: My [facility], Smoking Cessation Medications and DC Order Prescriptions: New ticagrelor [Brilinta] 90 mg Tablet 90 mg PO BID Qty: 60 0RF atorvastatin 40 mg Tablet 40 mg PO QAM Qty: 30 0RF aspirin 81 mg Tablet,Delayed Release (Dr/Ec) 81 mg PO QAM Qty: 30 0RF Continued esomeprazole magnesium [address] for susp in packet 20 mg PO DAILY Discharge Orders: Discharge Order (Routine); Ordered 07/13/25 Ordered By: Marquise Lagunas Admission Data Admit Date/Time: 07/11/25 20:56 Attending Provider: Marquise Lagunas Admit Provider: Ted Stewart Primary Care Provider: Ivone Thomas Other Providers: Adrienne Snow; Joon Field; Adrien Stubbs; Evert Brock; Nakul Arce; Ortiz Brady; Haily Goncalves; Juanita Major; Elisabeth Arredondo; Aridane Reardon; Adrienne Hernandez; Reymundo Alvarez; Stefan Goode; Savanna Bryant; Akua Javier; Desi Finch; Bhanu Jimenez; Felix Almnedarez; Rebekah Stubbs; Lilian Orosco; Rei Amaya; Abe Regalado Other Interventions: Discharge Summary Assessment (RN) Last Done: 07/13/25 13:05
[2025-07-14] MEDS ORDERED: ASPIRIN 81 MG ECTAB PO SCH
[2025-07-14] MEDS ORDERED: ATORVASTATIN 40 MG TAB PO SCH
--- NOTE | 2025-07-15 13:42 | Electrocardiogram Report ---
Test Reason : Blood Pressure : */* mmHG Vent. Rate : 88 BPM Atrial Rate : 88 BPM P-R Int : 184 ms QRS Dur : 86 ms QT Int : 332 ms P-R-T Axes : 43 -11 13 degrees QTcB Int : 401 ms Normal sinus rhythm Normal ECG When compared with ECG of 25-Jul-2024 20:29, No significant change was found Confirmed by Lencho Cuba ([id number]) on 07/15/2025 1:41:21 PM Referred By: Ok Gonsalves Confirmed By: Lencho Cuba
--- NOTE | 2025-07-15 16:14 | Electrocardiogram Report ---
Test Reason : Blood Pressure : */* mmHG Vent. Rate : 70 BPM Atrial Rate : 70 BPM P-R Int : 198 ms QRS Dur : 90 ms QT Int : 388 ms P-R-T Axes : 47 0 16 degrees QTcB Int : 419 ms Normal sinus rhythm Normal ECG When compared with ECG of 11-Jul-2025 21:17, (unconfirmed) No significant change was found Confirmed by Lencho Cuba ([id number]) on 07/15/2025 4:14:20 PM Referred By: Ok Gonsalves Confirmed By: Lencho Cuba
--- NOTE | 2025-07-15 16:44 | Electrocardiogram Report ---
Test Reason : Blood Pressure : */* mmHG Vent. Rate : 68 BPM Atrial Rate : 68 BPM P-R Int : 192 ms QRS Dur : 90 ms QT Int : 386 ms P-R-T Axes : 44 -13 11 degrees QTcB Int : 410 ms Normal sinus rhythm Normal ECG When compared with ECG of 12-Jul-2025 06:24, (unconfirmed) No significant change was found Confirmed by Lencho Cuba ([id number]) on 07/15/2025 4:44:26 PM Referred By: Ok Gonsalves Confirmed By: Lencho Cuba
--- NOTE | 2025-07-15 16:48 | Electrocardiogram Report ---
Test Reason : Blood Pressure : */* mmHG Vent. Rate : 70 BPM Atrial Rate : 70 BPM P-R Int : 206 ms QRS Dur : 92 ms QT Int : 390 ms P-R-T Axes : 44 -14 6 degrees QTcB Int : 421 ms Normal sinus rhythm Normal ECG When compared with ECG of 12-Jul-2025 13:42, (unconfirmed) No significant change was found Confirmed by Lencho Cuba ([id number]) on 07/15/2025 4:48:03 PM Referred By: Ok Gonsalves Confirmed By: Lencho Cuba
--- NOTE | 2025-07-16 08:04 | Electrocardiogram Report ---
Test Reason : Blood Pressure : */* mmHG Vent. Rate : 71 BPM Atrial Rate : 71 BPM P-R Int : 196 ms QRS Dur : 92 ms QT Int : 378 ms P-R-T Axes : 29 -20 17 degrees QTcB Int : 410 ms Normal sinus rhythm Normal ECG When compared with ECG of 12-Jul-2025 14:28, (unconfirmed) No significant change was found Confirmed by Lencho Cuba ([id number]) on 07/16/2025 8:03:34 AM Referred By: Ok Gonsalves Confirmed By: Lencho Cuba
--- NOTE | 2025-07-24 13:19 | Cardiac Catheterization ---
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 Cardiac Status Clinical evaluation leading to the procedure CAD Presenation: Non STEMI Anginal Classification: CCS IV Heart Failure: No Cardiac Arrest within 24 Hours: No Imaging Studies Past 6 Months: No Stress Studies Past 6 Months: No Coronary Anatomy Dominant: Right Left Main (% Stenosis): Normal LAD (% Stenosis): Mid (Calcified 60-70%) D1 (% Stenosis): Normal Circumflex (% Stenosis): Normal OM1 (% Stenosis): Normal OM2 (% Stenosis): Normal RCA (% Stenosis): Proximal (20-30%) R PDA (% Stenosis): Normal R PL1 (% Stenosis): Normal Diagnostic Physicians Name: Joon Dhaliwal MD, PhD Closure Device Percutaneous Entry Location: Radial Closure Device: Radial Band Recommendations: Medical Therapy and/or Counseling and PCI without planned CABG PCI Indication: PCI for high risk Non-JANIS Lesion Segment Name: Mid LAD Culprit Artery: Yes Stenosis Prior to Rx (%): 60-70% Chronic Total Occlusion: No FFR: Yes (IFR) Ratio: less than or equal to 0.75% (Significant, 0.86) Pre-Procedure MERA Flow: 3 Previously Treated Lesion: No Lesion Complexity: Non-High/Non-C Lesion Length (mm): 14 Thrombus Present: No Bifurcation Lesion: Yes Guidewire Across Lesion: Yes Intraprocedure Events Significant Disection: No Perforation: No Cardiac Cath Procedure Full Procedure Date July 12, 2025 Pre-Procedure Diagnosis Pre-Procedure Diagnosis: Non STEMI AUC Score AUC Score: 07 Post-Procedure Diagnosis Post-Procedure Diagnosis: Severe CAD and Successful PCI Procedure(s) Performed Procedure(s) Performed: Coronary Angiography, Drug Eluting Stent and Fractional Flow [employer] Electronic Engraver Joon Dhaliwal MD, PhD Estimated Blood Loss Estimated Blood Loss: 10 cc Medication(s) Medication(s): Fentanyl, Heparin, Lidocaine 1%, Nicardipine, Nitroglycerin and Versed Summary of Findings Brief description: Patient was brought to the cardiac catheterization suite where he was shaved and prepped in a sterile fashion. Sedated using IV Versed and fentanyl. Soft tissues of the right wrist were anesthetized using 2 mL of 1% Xylocaine. Right radial artery was accessed with a modified Seldinger technique and a 6 Turkmen radial artery glide sheath was placed. Patient provided anticoagulation with IV heparin and antispasmodics including nicardipine and nitroglycerin. All catheters advanced and exchanged over a 0.035 J-tip wire. Left coronary angiography in orthogonal views with a 5 Turkmen [place] 4 diagnostic catheter. Right coronary angiography in orthogonal views with a 5 Turkmen [place] 4 diagnostic catheter. Diagnostic catheters were removed. Decision was made to perform IFR analysis of the mid LAD lesion. ACT was checked. Additional heparin was provided to maintain therapeutic anticoagulation. This occurred as needed throughout the case. EBU 3.0 guide catheter was used to engage the left main. Omni Doppler wave wire advanced in position with the transducer just distal to the guide catheter tip. Pressures normalized. Guidewire advanced in position with the transducer just distal to the LAD lesion. IFR was sampled 3 times. Omni wire was removed and decision was made to proceed with PCI. BMW reversal guidewire was advanced and positioned distally in the LAD. Lesion predilated with a 2.5 x 12 mm trek balloon at 14 jamie. Implantation of 2.75 x 18 mm Surjit drug-eluting stent at 12 jamie. Stent balloon removed. Postdilatation with a 2.75 x 8 mm NC Frank balloon within the stented segment. 16 jamie distal part of the stent, 17 jamie mid part of the stent and 18 jamie proximal part of the stent. Balloon then removed. Coronary angiography was performed in orthogonal views and wire was removed. Guide catheter was removed. Radial artery sheath was removed. Hemostasis was obtained using the TR band. Patient was hemodynamically stable and asymptomatic. He was returned to the recovery area. This ended the case. Coronary angiography findings: [id number] vessel bifurcating into LAD and circumflex. Mild luminal irregularities. CRO-[id number] and transapical. Gives large septal branch and a medium caliber branching first diagonal. Several smaller branches also noted. Proximal LAD with less than 20% stenosis. Mid LAD with 60 to 70% stenosis near the origin of the diagonal. Distal vessel has mild luminal irregularities. The remainder of the LAD and its branches have no angiographically evident disease. There is mild to moderate calcification in the proximal and mid vessel. MERA-3 flow in the LAD. LCx-nondominant and large in caliber. Travels in the AV groove. Provides a branching OM1 and an OM 2. Terminates distally in the AV groove. The circumflex and its branches have no angiographically evident disease. RCA-this is large caliber and dominant. Proximally there is 20 to 30% stenosis. The mid and distal RCA have mild luminal irregularities. RCA bifurcates into a large PDA and a large branching posterolateral. No angiographically evident di sease in the branch vessels of the RCA. IFR analysis of mid LAD-0.86, 0.86, 0.87. Therefore, this is considered hemodynamically significant. PCI of mid LAD-0% residual stenosis post PCI No evidence of dissection or perforation post PCI MERA-3 flow post PCI Summary: 1. Severe single-vessel coronary artery disease (angiographically borderline, Doppler wire analysis suggesting hemodynamically significant). This is the culprit for non-ST elevation IN. 2. Successful PCI with implantation of a single drug-eluting stent to the LAD 3. Dual antiplatelet therapy with aspirin 81 mg daily and Brilinta 90 mg p.o. twice daily 4. Guideline directed medical therapy as tolerated. Suggested aspirin, statin, beta-geoff, plus or minus ARIANA inhibitor/ARB. Hemodynamics Rest Ao:: 112/75 mmHg Final Ao: 124/66 mmHg LV: Not performed Recommendations Recommendations: Medical Therapy and/or Counseling and PCI without planned CABG Radiation Exposure (mGy) 1416 mGy, fluoroscopy time 10.1-minute Contrast (mls) 120 cc Anesthesia 3 mg Versed, 75 mcg fentanyl IV. 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 Any exceptions are noted below. [facility] Card Cath Procedure Codes Cardiac Catheterization Procedure 1: Cardiovascular Cath Procedures: 80501 Coronaries Procedure 2: Cardiovascular Cath Procedures: 55356 (Doppler) Pressure Wire Moderate Sedation Procedure 1: Sedation/Anesthesia: 00502 Mod Sedation by the same physician;Init15 Min Child Age 5 & Up (Initial 15 minutes) Procedure 2: Sedation/Anesthesia: 83121 Mod Sedation by the same physician; Ea [id number] Minutes (Additional 21 minutes, and 1327) Stenting Procedure 1: Cardiovascular Stent Procedures: 17794 Perc transcatheter placement of intracoronary stent(s), with ang (LAD) PG Care Time/CCT Total # of Minutes Spent Total Time Spent with Patient: Total time spent is greater than 50% in coordination of care (as documented) at patient's floor/unit and/or counseling patient:
== END 2025-07-13 14:07 | disposition home or self-care (01) | DRG 322 ==
LOC: 2E 20:32
PROC: CLB.CCO (2025-07-12 11:00)